=== PATIENT | female | born 1940 | race Caucasian/White ===

== ENCOUNTER → 2017-06-23 | Outpatient (CLI) | payer MEDICARE ==
[~2017-06-23] MED LIST: ATEN50TA PO; HCT25T PO; LVT.05T PO; MULT-608 PO; NFAMINITAB PO; vitamin d PO
== END ==
LOC: RAD 09:16
PROVIDERS: ATTEND Nurse Practitioner Family
DX: Z12.31 Encounter for screening mammogram for malignant neoplasm of breast (principal)
CPT/HCPCS: 77067

== ENCOUNTER → 2018-10-12 | Outpatient (CLI) | payer MEDICARE ==
--- NOTE | 2018-10-12 13:18 | Diagnostic Imaging Report ---
INDICATION: Routine screening. COMPARISON: 06/23/2017 and 06/09/2016. TECHNIQUE: 2D and 3D bilateral screening mammography was performed with CAD. FINDINGS: Scattered fibroglandular densities are identified bilaterally. Benign calcifications in the right breast are noted. The parenchymal pattern is stable. No dominant mass or malignant appearing microcalcifications are seen. The axillae are unremarkable. IMPRESSION: No mammographic features suspicious for malignancy are identified. ACR BI-RADS Category 2: Benign findings. Result letter will be mailed to the patient. Note: At least 10% of breast cancer is not imaged by mammography. Dictated by: Dictated on workstation # [id number]
== END ==
LOC: RAD 07:46
PROVIDERS: ATTEND Nurse Practitioner Family
DX: Z12.31 Encounter for screening mammogram for malignant neoplasm of breast (principal)
CPT/HCPCS: 77067

== ENCOUNTER → 2018-11-10 | Outpatient (CLI) | payer MEDICARE ==
--- NOTE | 2018-11-10 09:30 | Diagnostic Imaging Report ---
PROCEDURE: US Hepatic (Liver). TECHNIQUE: Multiple real-time grayscale images were obtained over the right upper quadrant in various projections. INDICATION: Elevated alkaline phosphatase. FINDINGS: The liver is normal in size at 14 cm. No discrete liver mass is identified. The gallbladder is without stones or sludge. No wall thickening or biliary duct dilatation is seen. The pancreas and right kidney are unremarkable. There is no ascites. IMPRESSION: No abnormality identified. Dictated by: Dictated on workstation # [id number]
--- NOTE | 2018-11-10 10:05 | Diagnostic Imaging Report ---
PROCEDURE: CT maxillofacial and sinuses without contrast. TECHNIQUE: Multiple contiguous axial images were obtained through the facial bones and sinuses without the use of intravenous contrast. INDICATION: Left jaw pain. COMPARISON: CT sinuses without contrast 10/02/2009. FINDINGS: Ivahkacq-ji-kfhhgqoz degenerative changes in the left temporomandibular joint. Mild degenerative changes in the right temporomandibular joint. The mandible is intact. No maxillofacial fractures. There are postoperative findings in the left maxillary antrostomy and ethmoidectomy. There is moderate mucosal thickening in the left maxillary sinus. Mild S-shaped bowing of the nasal septum. No large radha bullosa. No periapical lucencies about the maxillary or mandibular dentition. Skull base is intact. The mastoids and middle ears are clear. Moderate spondylotic changes at C4-C5 result in at least mild spinal canal narrowing. Cysk-ls-qjjzlegf atherosclerotic calcifications in the carotid bifurcations. Intracranial vascular calcifications. IMPRESSION: 1. 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 2. Left maxillary antrostomy and ethmoidectomy. There is moderate mucosal thickening in the left maxillary sinus. Paranasal sinuses are otherwise clear. Dictated by: Dictated on workstation # [id number]
--- NOTE | 2018-11-10 13:19 | Diagnostic Imaging Report ---
PROCEDURE: CT maxillofacial and sinuses without contrast. TECHNIQUE: Multiple contiguous axial images were obtained through the facial bones and sinuses without the use of intravenous contrast. INDICATION: Left jaw pain. COMPARISON: CT sinuses without contrast 10/02/2009. FINDINGS: Moderate to advanced degenerative changes in the left temporomandibular joint. Mild degenerative changes in the right temporomandibular joint. The mandible is intact. No maxillofacial fractures. There are postoperative findings in the left maxillary antrostomy and ethmoidectomy. There is moderate mucosal thickening in the left maxillary sinus. Mild S-shaped bowing of the nasal septum. No large radha bullosa. No periapical lucencies about the maxillary or mandibular dentition. Skull base is intact. The mastoids and middle ears are clear. Moderate spondylotic changes at C4-C5 result in at least mild spinal canal narrowing. Mild to moderate atherosclerotic calcifications in the carotid bifurcations. Intracranial vascular calcifications. IMPRESSION: 1. 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 2. Left maxillary antrostomy and ethmoidectomy. There is moderate mucosal thickening in the left maxillary sinus. Paranasal sinuses are otherwise clear. Dictated by: Dictated on workstation # [id number]
== END ==
LOC: RAD 08:25
PROVIDERS: ATTEND Family Medicine
DX: M26.69 Other specified disorders of temporomandibular joint (principal); J32.0 Chronic maxillary sinusitis; R74.8 Abnormal levels of other serum enzymes; R68.84 Jaw pain; Z98.890 Other specified postprocedural states
CPT/HCPCS: 70486; 76705

== ENCOUNTER → 2018-11-22 | Outpatient (CLI) | payer MEDICARE ==
[~2018-11-22] MED LIST changes: +BARIUM SUSPENSION 2.1% (VANILLA SILQ) 450 ML PO ONE; +CATHETER FLUSH 10 ML SYR IV PRN; +IOHEXOL 350 MG/ML 100 ML (OMNIPAQUE 350) VIAL IV ONE; +NS 100 ML (IVPB) BAG IV ONE; +RECEIVED CONTRAST 20 ML VIAL IV SCH
--- NOTE | 2018-11-22 14:39 | Diagnostic Imaging Report ---
PROCEDURE: CT abdomen and pelvis with and without contrast. TECHNIQUE: Precontrast acquisitions were acquired through the abdomen and pelvis. Multiple contiguous axial images were obtained through the abdomen and pelvis after the administration of intravenous contrast. INDICATION: Elevated alkaline phosphatase. COMPARISON: No prior studies are available for comparison. FINDINGS: The lung bases are clear. The liver contains multiple low-density solid-appearing masses throughout the right lobe suggestive of hepatic metastatic disease. Mixed density mass in the dome of the right lobe of the liver anteriorly measures approximately 6.7 x 4.6 cm. The gallbladder is unremarkable. No biliary ductal dilatation is seen. The pancreas and spleen are unremarkable. No adrenal mass is identified. Kidneys are unremarkable. Aorta is nonaneurysmal. There is some nonspecific low-density soft tissue density in the central retroperitoneum at the level of the celiac left para-aortic region measuring 2.7 x 1.3 cm. This may represent lymphadenopathy. There is also low-density lymphadenopathy in the region of the right paraesophageal location measuring 1.2 cm in diameter. Nonspecific soft tissue in the juanita hepatis is noted suggestive of lymphadenopathy. Mesenteric node measures approximately 1.5 cm just inferior to the aortic bifurcation into the right of midline. Bowel loops are normal caliber. No obstruction is seen. There is sigmoid diverticulosis but no evidence of acute diverticulitis. There is no ascites. No definite inguinal or iliac lymphadenopathy is detected. IMPRESSION: 1. Numerous low-density solid masses throughout the liver suggestive of hepatic metastatic disease. Possibility of a primary liver lesion such as cholangiocarcinoma with associated hepatic metastases would be additional consideration. No biliary ductal dilatation is identified. There are numerous low-density enlarged lymph nodes in the juanita hepatis, central retroperitoneum and right paraesophageal location as well suggestive of metastatic disease. Mildly enlarged mesenteric node is present as well. Results were discussed with Dr. Selma Nelson prior to this dictation. Dictated by: Dictated on workstation # [id number]
== END ==
LOC: RAD 13:27
PROVIDERS: ATTEND Family Medicine
DX: R59.0 Localized enlarged lymph nodes (principal); R16.0 Hepatomegaly, not elsewhere classified
CPT/HCPCS: 74178

== ENCOUNTER 2018-11-26 08:52 | Outpatient (CLI) | payer MEDICARE ==
[~2018-11-26] VITALS: Ht 157.5 cm; Wt 56.7 kg
[2018-11-26] VITALS (14 sets, daily range): BP systolic 112–164; BP diastolic 45–78
[~2018-11-26 08:52] MED LIST changes: -BARIUM SUSPENSION 2.1% (VANILLA SILQ) 450 ML PO ONE; -CATHETER FLUSH 10 ML SYR IV PRN; -IOHEXOL 350 MG/ML 100 ML (OMNIPAQUE 350) VIAL IV ONE; -NS 100 ML (IVPB) BAG IV ONE; -RECEIVED CONTRAST 20 ML VIAL IV SCH
[2018-11-26] MEDS ORDERED: NS IV 1000 ML 1,000 ML IV STA (08:55)
[2018-11-26] MEDS ORDERED: LIDOCAINE 1% INJ 20 ML 20 ML VIAL INJ ONE (09:00)
[2018-11-26] MEDS ORDERED: MIDAZOLAM 2 MG/2 ML (VERSED) VIAL IVP ONE (09:00)
[2018-11-26] MEDS ORDERED: fentaNYL INJECTION 100 MCG/2 ML AMP IVP ONE (09:00)
--- NOTE | 2018-11-26 09:30 | NUR ---
ADMITTED TO ROOM 417 FOR LIVER BIOPSY, ALERT AND ORIENTED, VERBALIZED UNDERSTANDING OF PROCEDURE.
--- NOTE | 2018-11-26 09:40 | NUR ---
CONSENT SIGNED FOR LIVER BIOPSY
[2018-11-26] MEDS ORDERED: ALBUMIN 25% 25 GM/100 ML 100 ML IV ONE (10:00)
[2018-11-26 10:04] LABS: BASOPHILS # (AUTO) 0.1 10^3/uL (0.0-0.1); BASOPHILS % (AUTO) 1 % (0-10); EOSINOPHILS # (AUTO) 0.3 10^3/uL (0.0-0.3); EOSINOPHILS % (AUTO) 5 % (0-10); HEMATOCRIT 41 % (35-52); HEMOGLOBIN 13.5 G/DL (11.5-16.0); LYMPHOCYTES % (AUTO) 27 % (12-44); MEAN CORPUSCULAR HEMOGLOBIN 29 PG (25-34); MEAN CORPUSCULAR HGB CONC 33 G/DL (32-36); MEAN CORPUSCULAR VOLUME 89 FL (80-99); MEAN PLATELET VOLUME 10.7 FL (7.4-10.4); MONOCYTES # (AUTO) 0.8 X 10^3 (0.0-1.0); MONOCYTES % (AUTO) 10 % (0-12); NEUTROPHILS # (AUTO) 4.4 X 10^3 (1.8-7.8); NEUTROPHILS % (AUTO) 58 % (42-75); PLATELET COUNT 364 10^3/uL (130-400); RED CELL DISTRIBUTION WIDTH 13.8 % (10.0-14.5); WHITE BLOOD COUNT 7.6 10^3/uL (4.3-11.0)
[2018-11-26] MEDS ORDERED: FLU QUADRIvalent (5+ YOA) 2018-2019 (AFLURIA) 0.5 ML IM ONE (10:15)
[2018-11-26 10:22] LABS: INR 0.9 (0.8-1.4); PROTHROMBIN TIME PATIENT 12.4 SEC (12.2-14.7)
[2018-11-26 10:27] LABS: ALBUMIN 4.5 GM/DL (3.2-4.5); CALCIUM 10.4 MG/DL (8.5-10.1); CREATININE SERUM 1.08 MG/DL (0.60-1.30); POTASSIUM 4.1 MMOL/L (3.6-5.0)
--- NOTE | 2018-11-26 11:06 | NUR ---
to radiology per bed
[2018-11-26] MEDS ORDERED: HYDROcodone/APAP 5 MG/325 MG (LORTAB) TAB PO PRN (12:15)
--- NOTE | 2018-11-26 12:32 | Pre-Op Note & Conscious Sedat ---
Pre-Operative Progress Note H&P Reviewed The H&P was reviewed, patient examined and no changes noted. Date H&P Reviewed: Nov 26, 2018 Time H&P Reviewed: 10:00 Pre-Op Diagnosis: Liver mass Conscious Sedation Pre-Proced Time 10:00 ASA Score 2 For ASA 3 and 4: Consider anesthesia and medical clearance. Also, for patients with a history of failed moderate sedation consider anesthesia. Airway Lungs Heart ASA score ASA 1: a normal healthy patient ASA 2: a patient with a mild systemic disease (mid diabetes, controlled hypertension, obesity ASA 3: a patient with a severe systemic disease that limits activity (angina , COPD, prior Myocardial infarction) ASA 4: a patient with an incapacitating disease that is a constant threat to life (CHF, renal failure) ASA 5: a moribund patient not expected to survive 24 hrs. (ruptured aneurysm) ASA 6: a declared brain- patient whose organs are being harvested. For emergent operations, add the letter E after the classification Mallampati Classification Grade 2 Sedation Plan Analgesia, Amnesia, Plan communicated to team members, Discussed options with patient/fam, Discussed risks with patient/fam The patient is an appropriate candidate to undergo the planned procedure, sedation, and anesthesia. The patient immediately re-assessed prior to indication. FIFI ZHONG MD Nov 26, 2018 12:32
--- NOTE | 2018-11-26 12:40 | NUR ---
RETURNED FROM LIVER BIOPSY
--- NOTE | 2018-11-26 13:10 | Diagnostic Imaging Report ---
INDICATION: Liver masses. Patient presents for biopsy using CT guidance. TECHNIQUE: The patient was brought to the CT suite and placed on the table in the supine position. Axial imaging through the abdomen was performed to evaluate for an appropriate entry site. The procedure was performed utilizing conscious sedation with Radiology nursing and constant patient monitoring. The patient was administered a total of 0.5 mg of Versed and 50 mcg of Fentanyl intravenously. The total procedure time was 12 minutes. The right abdomen was prepped and draped in the usual sterile fashion. A small amount of 1% lidocaine was utilized for local anesthesia. An 18-gauge coaxial Temno needle was advanced and placed with its tip along the margin of the low-density mass in the inferior right lobe of the liver. A total of five core biopsies was obtained. A blood patch was injected during needle removal. Hemostasis was obtained using manual compression. The patient tolerated the procedure well. IMPRESSION: CT-guided right lobe liver biopsy utilizing conscious sedation. Pathology results are currently pending. Dictated by: Dictated on workstation # [id number]
--- NOTE | 2018-11-26 13:18 | Diagnostic Imaging Report ---
PROCEDURE: CT chest without contrast. TECHNIQUE: Multiple contiguous axial images were obtained through the chest without the use of intravenous contrast. INDICATION: Liver masses. No prior studies available for comparison. No axillary lymphadenopathy is seen. Hilar and mediastinal valuation is limited without intravenous contrast. There is some questionable soft tissue fullness in the subcarinal region, raising question of adenopathy. This area measures approximately 2.3 x 1.5 cm. The david is unremarkable. No pericardial or pleural fluid is identified. Pulmonary parenchyma appears clear. No nodule, mass or infiltrate is detected. Imaging to upper abdomen again demonstrates multiple low-density masses throughout the liver suggestive of hepatic metastatic disease. IMPRESSION: There is some mild soft tissue fullness in the subcarinal region, raising question of subcarinal lymphadenopathy. Study is limited without IV contrast. No pulmonary parenchymal metastatic disease is identified. Dictated by: Dictated on workstation # [id number]
--- NOTE | 2018-11-26 16:37 | NUR ---
DISMISSED PER W/C, ACCOMPANIED BY FAMILY, DENIES PAIN, DRESSING DRY AND INTACT, VITAL SIGNS STABLE
== END 2018-11-26 16:37 ==
LOC: RAD 08:52 → 4TH 09:45 → RAD 16:37 → 4TH 11-27 10:24 → RAD 11-27 10:24
PROVIDERS: ATTEND Family Medicine
DX: C22.7 Other specified carcinomas of liver (principal)
CPT/HCPCS: 36415; 71250; 77012; 80053; 82105; 82378; 83615; 85025; 85610; 85730; 86301; 99156

== ENCOUNTER 2018-12-08 05:37 | Outpatient (CLI) | payer MEDICARE ==
[~2018-12-08] VITALS: Ht 157.5 cm; Wt 56.7 kg
[2018-12-08] MEDS ORDERED: INDA1.25 PO (10:44)
[2018-12-08] MEDS ORDERED: LEVO50TA6 PO (10:44)
[2018-12-08] MEDS ORDERED: ATEN50TA PO (10:44)
[2018-12-08] MEDS ORDERED: MULT-178 PO (10:44)
[2018-12-08] MEDS ORDERED: VIT1CAPS5 PO (10:44)
[2018-12-08] MEDS ORDERED: LISI10TA2 PO (10:44)
== END 2018-12-08 10:48 | disposition home or self-care (01) ==
LOC: PREOP 05:37
PROVIDERS: ATTEND Internal Medicine
DX: Z01.818 Encounter for other preprocedural examination (principal)

== ENCOUNTER 2018-12-10 08:13 | Day surgery (SDC) | payer MEDICARE ==
--- NOTE | 2018-12-09 10:33 | HISTORY AND PHYSICAL ---
DATE OF SERVICE: COLONOSCOPY HISTORY AND PHYSICAL DATE OF ADMISSION: 12/10/2018. HISTORY OF PRESENT ILLNESS: The patient is a 76-year-old white female referred by Dr. Mancini for panendoscopy for evaluation of metastatic liver disease. The patient reports she had undergone biopsy and they know it is cancer, so I presume likely adenocarcinoma of unknown primary. She reports that she has been feeling increasingly fatigued over the past several months and was noted to have elevated liver function studies. This ultimately led to a CT scan compatible with metastatic disease. She states that there may have been some lymph nodes around the aorta. She has had some epigastric and band like right upper quadrant abdominal pain. Denies any bowel habit change and has not been aware of any bright red blood per rectum or melena. She denies dysphagia or odynophagia. PAST MEDICAL HISTORY: I had performed colonoscopy on her in December of 2011. It has revealed a small fissure at the 12 o'clock position, but no evidence for neoplasia. She has past history of hypothyroidism and hypertension with no known history of coronary artery disease or cerebrovascular disease. PAST SURGICAL HISTORY: Significant for a distant history of sinus surgery. She denies any abdominal surgeries. MEDICATIONS ON ADMISSION: Include L-thyroxine 50 mcg daily, lisinopril 10 mg daily, indapamide 1.25 mg daily, atenolol 50 mg daily and PreserVision multivitamin daily. FAMILY HISTORY: She is not aware of any family history for any form of cancer including GI tract malignancy. 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 REVIEW OF SYSTEMS: CONSTITUTIONAL: Pertinent for fatigue. She denied night sweats, chills or fever. CARDIOVASCULAR: She denies chest pain, orthopnea, PND or pedal edema. PULMONARY: She has had no cough or wheezing. GASTROINTESTINAL: As noted in the HPI. PHYSICAL EXAMINATION: GENERAL: Reveals somewhat sallow complected white female, who did not appear to be in acute distress. VITAL SIGNS: Her weight was 126 pounds, which is down 15 pounds from her 2012 office weight, blood pressure 110/70 and heart rate 70 and regular. HEENT: Unremarkable. Sclerae did not appear to be icteric. CHEST: Clear to auscultation. CARDIOVASCULAR: Reveals a regular rate and rhythm without murmur, S3 or S4. ABDOMEN: Soft and supple. The right hepatic lobe appears to be about 2 cm below the right costal margin, slightly tender. I could not appreciate any definitive nodularity. Spleen was not palpable. Abdomen revealed no masses to palpation and there was no lower quadrant tenderness to palpation. EXTREMITIES: Revealed no cyanosis or clubbing. The patient does have trace pedal edema. 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 The patient is set up for panendoscopy on 12/10/2018. Prep instructions were given and questions were answered. Job ID: [id number] DocumentID: [id number] Dictated Date: 12/07/2018 11:59:05 Make Up Artist Date: 12/07/2018 12:19:13 Dictated By: ANGIE NOYOLA MD MTDD
[~2018-12-10] VITALS: Ht 157.5 cm; Wt 56.7 kg
[~2018-12-10 08:13] MED LIST changes: +INDA1.25 PO; +LEVO50TA6 PO; +LISI10TA2 PO; +MULT-178 PO; +VIT1CAPS5 PO
--- OUTSIDE RECORDS SUMMARY | 2018-12-10 08:16 | XMS REPORT | Continuity of Care Document ---
Author Author [facility] Organization [facility] Address Unknown Phone Unavailable Allergies Active Description Code Type Severity Reaction Onset Reported/Identified Relationship to Patient Clinical Status Yes No Known Drug Allergies [id number] Drug Allergy Unknown N/A 12/08/2018 Medications There is no data. 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 NOS 09/17/2014 CHAPARRO MOSHER, SHERRY Beard Ot 379.91 PAIN IN OR AROUND EYE 09/17/2014 Ot V76.12 09/17/2014 Ot 473.9 09/17/2014 Ot 780.60 09/17/2014 Ot 786.50 09/17/2014 Ot 786.50 09/17/2014 Ot V76.12 09/17/2014 Ot 722.52 09/17/2014 Ot V72.84 09/17/2014 Ot V76.12 09/17/2014 MARY MOSHER, SAQIB Corea Ot V76.12 09/17/2014 MARY MOSHER, SAQIB Corea Ot V76.12 05/30/2015 SHAHID MOSHER, GÉNESIS Mckay Ot 715.31 06/05/2015 Ot V76.12 06/05/2015 Ot 722.52 06/05/2015 Ot V72.84 06/05/2015 Ot V76.12 06/05/2015 SAQIB HERNANDEZ MD Ot V76.12 06/05/2015 SAQIB HERNANDEZ MD Ot V76.12 06/05/2015 SHAHID MOSHER, GÉNESIS Mckay Ot 715.31 06/05/2015 SHAHID MOSHER, GÉNESIS Mckay Ot 715.31 06/07/2015 SHAHID MOSHER, GÉNESIS Mckay Ot 715.31 06/27/2015 SHAHID MOSHER, GÉNESIS Mckay Ot V76.12 06/09/2016 KYLE, ESTUARDO M DECORATING INSPECTOR Ot Z12.31 ENCNTR SCREEN MAMMOGRAM FOR MALIGNANT NE 06/10/2016 ESTUARDO WRIGHT DECORATING INSPECTOR Ot Z12.31 ENCNTR SCREEN MAMMOGRAM FOR MALIGNANT NE 06/19/2016 ESTUARDO WRIGHT DECORATING INSPECTOR Ot Z12.31 ENCNTR SCREEN MAMMOGRAM FOR MALIGNANT NE 06/17/2017 ESTUARDO WRIGHT DECORATING INSPECTOR Ot Z12.31 ENCNTR SCREEN MAMMOGRAM FOR MALIGNANT NE 06/23/2017 Ot V76.12 OTH SCREEN MAMMO-MALIGN NEOPLASM OF ALBA 06/23/2017 MARY MOSHER, SAQIB Corea Ot V76.12 OTH SCREEN MAMMO-MALIGN NEOPLASM OF ALBA 06/23/2017 MARY MOSHER, SAQIB Corea Ot V76.12 OTH SCREEN MAMMO-MALIGN NEOPLASM OF ALBA 06/23/2017 SHAHID MOSHER, GÉNESIS Mckay Ot V76.12 OTH SCREEN MAMMO-MALIGN NEOPLASM OF ALBA 06/23/2017 SHAHID MOSHER, GÉNESIS A Ot 715.31 LOC OSTEOARTH NOS-SHLDER 06/23/2017 ESTUARDO WRIGHT DECORATING INSPECTOR Ot Z12.31 ENCNTR SCREEN MAMMOGRAM FOR MALIGNANT NE 06/23/2017 ESTUARDO WRIGHT DECORATING INSPECTOR Ot Z12.31 ENCNTR SCREEN MAMMOGRAM FOR MALIGNANT NE 07/16/2017 ESTUARDO WRIGHT DECORATING INSPECTOR Ot Z12.31 ENCNTR SCREEN MAMMOGRAM FOR MALIGNANT NE 10/11/2018 ESTUARDO WRIGHT DECORATING INSPECTOR Ot Z12.31 ENCNTR SCREEN MAMMOGRAM FOR MALIGNANT NE 10/12/2018 MARY MOSHER, SAQIB Corea Ot V76.12 OTH SCREEN MAMMO-MALIGN NEOPLASM OF ALBA 10/12/2018 SHAHID MOSHER, GÉNESIS A Ot V76.12 OTH SCREEN MAMMO-MALIGN NEOPLASM OF ALBA 10/12/2018 SHAHID MOSHER, GÉNESIS A Ot 715.31 LOC OSTEOARTH NOS-SHLDER 10/12/2018 ESTUARDO WRIGHT DECORATING INSPECTOR Ot Z12.31 ENCNTR SCREEN MAMMOGRAM FOR MALIGNANT NE 10/12/2018 ESTUARDO RWIGHT DECORATING INSPECTOR Ot Z12.31 ENCNTR SCREEN MAMMOGRAM FOR MALIGNANT NE 10/12/2018 ESTUARDO WRIGHT DECORATING INSPECTOR Ot Z12.31 ENCNTR SCREEN MAMMOGRAM FOR MALIGNANT NE 10/13/2018 ESTUARDO WRIGHT DECORATING INSPECTOR Ot Z12.31 ENCNTR SCREEN MAMMOGRAM FOR MALIGNANT NE 11/03/2018 ESTUARDO WRIGHT DECORATING INSPECTOR Ot Z12.31 ENCNTR SCREEN MAMMOGRAM FOR MALIGNANT NE 11/10/2018 GÉNESIS KEY MD Ot J32.0 CHRONIC MAXILLARY SINUSITIS 11/10/2018 GÉNESIS KEY MD Ot M26.69 OTHER SPECIFIED DISORDERS OF TEMPOROMAND 11/10/2018 GÉNESIS KEY MD Ot R68.84 JAW PAIN 11/10/2018 GÉNESIS KYE MD Ot R74.8 ABNORMAL LEVELS OF OTHER SERUM ENZYMES 11/10/2018 GÉNESIS KEY MD Ot Z98.890 OTHER SPECIFIED POSTPROCEDURAL STATES 11/23/2018 GÉNESIS KEY MD Ot R16.0 HEPATOMEGALY, NOT ELSEWHERE CLASSIFIED 11/23/2018 GÉNESIS KEY MD Ot R59.0 LOCALIZED ENLARGED LYMPH NODES 11/23/2018 GÉNESIS KEY MD Ot V76.12 OTH SCREEN MAMMO-MALIGN NEOPLASM OF ALBA 11/23/2018 GÉNESIS KEY MD Ot 715.31 LOC OSTEOARTH NOS-SHLDER 11/23/2018 ESTUARDO WRIGHT DECORATING INSPECTOR Ot Z12.31 ENCNTR SCREEN MAMMOGRAM FOR MALIGNANT NE 11/23/2018 ESTUARDO WRIGHT DECORATING INSPECTOR Ot Z12.31 ENCNTR SCREEN MAMMOGRAM FOR MALIGNANT NE 11/23/2018 ESTUARDO WRIGHT DECORATING INSPECTOR Ot Z12.31 ENCNTR SCREEN MAMMOGRAM FOR MALIGNANT NE 11/23/2018 GÉNESIS KEY MD Ot J32.0 CHRONIC MAXILLARY SINUSITIS 11/23/2018 GÉNESIS KEY MD Ot M26.69 OTHER SPECIFIED DISORDERS OF TEMPOROMAND 11/23/2018 GÉNESIS KEY MD Ot R68.84 JAW PAIN 11/23/2018 GÉNESIS KEY MD Ot R74.8 ABNORMAL LEVELS OF OTHER SERUM ENZYMES 11/23/2018 GÉNESIS KEY MD Ot Z98.890 OTHER SPECIFIED POSTPROCEDURAL STATES 11/23/2018 GÉNESIS KEY MD Ot R16.0 HEPATOMEGALY, NOT ELSEWHERE CLASSIFIED 11/23/2018 GÉNESIS KEY MD Ot R59.0 LOCALIZED ENLARGED LYMPH NODES 11/26/2018 GÉNESIS KEY MD Ot K76.9 LIVER DISEASE, UNSPECIFIED 11/26/2018 SHAHID MOSHER, GÉNESIS Woody Ot K76.9 LIVER DISEASE, UNSPECIFIED 12/08/2018 DENNYS MOSHER, ANGIE Beard Ot Z01.818 ENCOUNTER FOR OTHER PREPROCEDURAL EXAMIN Procedures There is no data. Results Test Result Range Complete blood count (CBC) with automated white blood cell (WBC) differential - 11/26/18 09:55 Blood leukocytes automated count (number/volume) 7.6 10*3/uL 4.3-11.0 Blood erythrocytes automated count (number/volume) 4.64 10*6/uL 4.35-5.85 Venous blood hemoglobin measurement (mass/volume) 13.5 g/dL 11.5-16.0 Blood hematocrit (volume fraction) 41 % 35-52 Automated erythrocyte mean corpuscular volume 89 [foz_us] 80-99 Automated erythrocyte mean corpuscular hemoglobin (mass per erythrocyte) 29 pg 25-34 Automated erythrocyte mean corpuscular hemoglobin concentration measurement ( mass/volume) 33 g/dL 32-36 Automated erythrocyte distribution width ratio 13.8 % 10.0-14.5 Automated blood platelet count (count/volume) 364 10*3/uL 130-400 Automated blood platelet mean volume measurement 10.7 [foz_us] 7.4-10.4 Automated blood neutrophils/100 leukocytes 58 % 42-75 Automated blood lymphocytes/100 leukocytes 27 % 12-44 Blood monocytes/100 leukocytes 10 % 0-12 Automated blood eosinophils/100 leukocytes 5 % 0-10 Automated blood basophils/100 leukocytes 1 % 0-10 Blood neutrophils automated count (number/volume) 4.4 10*3 1.8-7.8 Blood lymphocytes automated count (number/volume) 2.0 10*3 1.0-4.0 Blood monocytes automated count (number/volume) 0.8 10*3 0.0-1.0 Automated eosinophil count 0.3 10*3/uL 0.0-0.3 Automated blood basophil count (count/volume) 0.1 10*3/uL 0.0-0.1 PT panel in platelet poor plasma by coagulation assay - 11/26/18 09:55 Prothrombin time (PT) in platelet poor plasma by coagulation assay 12.4 s 12.2-14.7 INR in platelet poor plasma or blood by coagulation assay 0.9 0.8-1.4 Activated partial thromboplastin time (aPTT) in platelet poor plasma bycoagulation assay - 11/26/18 09:55 Activated partial thromboplastin time (aPTT) in platelet poor plasma bycoagulation assay 36 s 24-35 Comprehensive metabolic panel - 11/26/18 09:55 Serum or plasma sodium measurement (moles/volume) 134 mmol/L 135-145 Serum or plasma potassium measurement (moles/volume) 4.1 mmol/L 3.6-5.0 Serum or plasma chloride measurement (moles/volume) 99 mmol/L 98-107 Carbon dioxide 23 mmol/L 21-32 Serum or plasma anion gap determination (moles/volume) 12 mmol/L 5-14 Serum or plasma urea nitrogen measurement (mass/volume) 16 mg/dL 7-18 Serum or plasma creatinine measurement (mass/volume) 1.08 mg/dL 0.60-1.30 Serum or plasma urea nitrogen/creatinine mass ratio 15 NRG Serum or plasma creatinine measurement with calculation of estimated glomerular filtration rate 49 NRG Serum or plasma glucose measurement (mass/volume) 111 mg/dL 70-105 Serum or plasma calcium measurement (mass/volume) 10.4 mg/dL 8.5-10.1 Serum or plasma total bilirubin measurement (mass/volume) 1.0 mg/dL 0.1-1.0 Serum or plasma alkaline phosphatase measurement (enzymatic activity/volume) 363 U/L 40-136 Serum or plasma aspartate aminotransferase measurement (enzymatic activity/ volume) 43 U/L 5-34 Serum or plasma alanine aminotransferase measurement (enzymatic activity/volume ) 27 U/L 0-55 Serum or plasma protein measurement (mass/volume) 8.0 g/dL 6.4-8.2 Serum or plasma albumin measurement (mass/volume) 4.5 g/dL 3.2-4.5 CALCIUM CORRECTED 10.0 mg/dL 8.5-10.1 Lactate dehydrogenase 1 [enzymatic activity/volume] in serum or plasma - 09:55 Lactate dehydrogenase 1 [enzymatic activity/volume] in serum or plasma 399 U/L 125-220 Serum or plasma mpwgl-6-gglfsmksugi.tumor marker measurement (mass/volume) - 09:55 Serum or plasma [id number]-[id number].tumor marker measurement (mass/volume) 4.4 % 0.0-8.8 Serum ragweed IgE antibody assay - 11/26/18 09:55 [id number] 46.6 % 0.0-5.0 CA 19-9 - 11/26/18 09:55 CA 19-9 C 422 u[iU]/mL 0-37 Encounters ACCT No. Visit Date/Time Discharge Status Pt. Type Provider Facility Loc./Unit Complaint [id number] 12/08/2018 05:37:00 12/08/2018 10:48:00 DIS Outpatient ANGIE NOYOLA MD [facility] PREOP COLONOSCOPY,EGD [id number] 12/02/2018 13:51:00 12/02/2018 23:59:59 CLS Outpatient LISE MINER MD [facility] ONC [id number] 11/26/2018 08:52:00 11/26/2018 16:37:00 DIS Outpatient GÉNESIS KEY MD [facility] RAD LIVER TUMORS ON CT SCAN [id number] 11/24/2018 08:13:00 11/24/2018 23:59:59 CLS Preadmit GÉNESIS KEY MD [facility] RAD LIVER TUMORS ON CT SCAN [id number] 11/22/2018 13:27:00 11/22/2018 23:59:59 CLS Outpatient GÉNESIS KEY MD [facility] RAD ELEVATED ALKALINE PHOSPHATASE [id number] 11/10/2018 08:25:00 11/10/2018 23:59:59 CLS Outpatient GÉNESIS KEY MD [facility] RAD ELEVATED ALK PHOS, L JAW PAIN [id number] 10/12/2018 07:46:00 10/12/2018 23:59:59 CLS Outpatient ESTUARDO WRIGHT APRN [facility] RAD SCREENING [id number] 05/11/2018 10:40:00 05/11/2018 23:59:59 CLS Preadmit GÉNESIS KEY MD [facility] RAD SCREENING MAMMOGRAM [id number] 06/23/2017 09:16:00 06/23/2017 23:59:59 CLS Outpatient ESTUARDO WRIGHT APRN [facility] RAD SCREENING [id number] 06/09/2016 09:47:00 06/09/2016 23:59:59 CLS Outpatient ESTUARDO WRIGHT APRN [facility] RAD SCREENING [id number] 06/05/2015 08:56:00 06/05/2015 23:59:59 CLS Outpatient GÉNESIS KEY MD [facility] RAD SCREENING [id number] 05/10/2015 10:48:00 05/10/2015 23:59:59 CLS Outpatient GÉNESIS KEY MD [facility] RAD R CLAVICLE ENLARGEMENT [id number] 09/17/2014 07:35:00 09/17/2014 09:17:00 DIS Emergency SHERRY MAYFIELD MD [facility] ER FACIAL PAIN [id number] 06/01/2014 08:31:00 06/01/2014 23:59:59 CLS Outpatient SAQIB HERNANDEZ MD [facility] RAD SCREENING [id number] 02/28/2013 09:51:00 02/28/2013 23:59:59 CLS Outpatient SAQIB HERNANDEZ MD [facility] RAD SCREENING [id number] 12/10/2018 08:13:00 ACT Outpatient ANGIE NOYOLA MD [facility] ENDO LIVER CANCER UNKNOWN ORIGIN [id number] 09/17/2014 09:22:00 Document Registration [id number] 02/02/2012 09:03:00 Document Registration [id number] 12/23/2011 06:10:00 Document Registration [id number] 12/19/2011 08:04:00 Document Registration [id number] 12/16/2011 09:28:00 Document Registration [id number] 01/30/2011 08:26:00 Document Registration [id number] 11/02/2009 07:08:00 Document Registration [id number] 10/02/2009 15:03:00 Document Registration [id number] 08/06/2009 09:29:00 Document Registration
[2018-12-10] MEDS ORDERED: D5 LR IV SOLUTION 1,000 ML IV STA (08:24)
[2018-12-10] MEDS ORDERED: fentaNYL INJECTION 100 MCG/2 ML AMP IVP ONE (08:30)
[2018-12-10] MEDS ORDERED: MIDAZOLAM 2 MG/2 ML (VERSED) VIAL IVP ONE (08:30)
[2018-12-10] MEDS ORDERED: HURRICAINE EXT TUBE (BENZOCAINE) XX PRN (08:30)
[2018-12-10] MEDS ORDERED: D5 LR IV SOLUTION 1,000 ML IV ONE (08:31)
[2018-12-10] MEDS ORDERED: MIDAZOLAM 2 MG/2 ML (VERSED) VIAL ONE ×3 (08:51→09:18)
[2018-12-10] MEDS ORDERED: fentaNYL INJECTION 100 MCG/2 ML AMP ONE (08:51)
[2018-12-10] MEDS ORDERED: LIDOCAINE JELLY 2% 6 ML SYRINGE ONE (08:52)
[2018-12-10] MEDS ORDERED: HURRICAINE EXT TUBE (BENZOCAINE) ONE (08:52)
[2018-12-10 08:56] VITALS: BP 141/74
--- NOTE | 2018-12-10 09:14 | Pre-Op Note & Conscious Sedat ---
Pre-Operative Progress Note H&P Reviewed The H&P was reviewed, patient examined and no changes noted. Date H&P Reviewed: Dec 10, 2018 Time H&P Reviewed: 08:35 Conscious Sedation Pre-Proced ASA Score 2 For ASA 3 and 4: Consider anesthesia and medical clearance. Also, for patients with a history of failed moderate sedation consider anesthesia. Airway Lungs Heart ASA score ASA 1: a normal healthy patient ASA 2: a patient with a mild systemic disease (mid diabetes, controlled hypertension, obesity ASA 3: a patient with a severe systemic disease that limits activity (angina , COPD, prior Myocardial infarction) ASA 4: a patient with an incapacitating disease that is a constant threat to life (CHF, renal failure) ASA 5: a moribund patient not expected to survive 24 hrs. (ruptured aneurysm) ASA 6: a declared brain- patient whose organs are being harvested. For emergent operations, add the letter E after the classification Mallampati Classification Grade 2 Sedation Plan Analgesia, Amnesia, Plan communicated to team members, Discussed options with patient/fam, Discussed risks with patient/fam The patient is an appropriate candidate to undergo the planned procedure, sedation, and anesthesia. The patient immediately re-assessed prior to indication. ANGIE NOYOLA MD Dec 10, 2018 09:14
[2018-12-10 10:15] VITALS: BP 145/70
[2018-12-10 11:10] VITALS: BP 130/90
[2018-12-10 11:24] VITALS: BP 130/90
--- NOTE | 2018-12-10 17:10 | OPERATIVE REPORT ---
DATE OF SERVICE: 12/10/2018 PANENDOSCOPY SUMMARY INDICATION FOR THE PROCEDURE: Metastatic adenocarcinoma of the liver, evaluating for primary site. The patient was placed in the left lateral decubitus position. Prior to doing a colonoscopy, digital rectal evaluation was performed. Anal sphincter tone was normal and the perianal reflexes were intact. No abnormalities were noted on visual inspection of the anal canal or distal rectal vault. The colonoscope was then inserted into the rectum and under direct visualization advanced to the cecum. The cecum was identified by identification of the ileocecal valve, cecal strap and appendiceal orifice. Photographic documentation was obtained. A careful inspection was made as the colonoscope was withdrawn. FINDINGS: There was no evidence for internal or external hemorrhoids and the rectum was unremarkable. Multiple small to medium size diverticulum were noted throughout the sigmoid colon without evidence for diverticulitis. No evidence for sigmoid colonic neoplasia was identified. The descending colon and transverse colon were unremarkable. Present in the hepatic flexure was a 6 mm adenomatous appearing polyp with benign appearance on gross inspection. Biopsies were obtained. There was no firmness noted and submitted for histopathology. No significant blood loss observed. The ascending colon was unremarkable. Spilling out of the appendiceal orifice was an adenomatous appearing polyp tissue. There was a little bit of firmness and multiple biopsies were obtained and submitted for histopathology. ASSESSMENT: An adenomatous appearing polyp was noted spilling out from the appendiceal orifice for which multiple biopsies were obtained and submitted for histopathology. 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 The patient also had another adenomatous polyp with benign features for which, multiple biopsies were obtained from the hepatic flexure. Moderate diverticular disease confined to the sigmoid colon was present without evidence for diverticulitis. No other abnormalities noted on today's procedure. We then proceeded with EGD evaluation. The endoscope was inserted into the oral cavity and under direct visualization, the esophagus was intubated. The endoscope was passed down the esophagus, stomach and second portion of duodenum. A careful inspection was made as the endoscope was withdrawn. The patient tolerated the procedure well. FINDINGS: The proximal and mid esophagus were unremarkable. A small to moderate size hiatal hernia was present with evidence for sphincter laxity. There was some erythema noted at the Z-line, but no evidence on gross inspection for esophageal carcinoma was present. No ulcerations were noted. The cardia, fundus, antrum, pylorus, pyloric channel, duodenal bulb and second portion of the duodenum including ampulla of Vater were unremarkable in appearance. ASSESSMENT: No evidence for potential malignancy was noted on today's EGD. The patient does have a small to moderate size hiatal hernia with evidence for lower esophageal sphincter laxity, but no evidence for erosive esophagitis. 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 I thank you for the referral of this pleasant lady. Job ID: [id number] DocumentID: [id number] Dictated Date: 12/10/2018 10:19:45 Rubber Vulcanizing Machine Operator Date: 12/10/2018 17:09:37 Dictated By: ANGIE NOYOLA MD MTDD
== END 2018-12-10 11:25 | disposition home or self-care (01) ==
LOC: ENDO 08:13
PROVIDERS: ATTEND Internal Medicine
DX: D12.1 Benign neoplasm of appendix (principal); D12.3 Benign neoplasm of transverse colon; K57.30 Diverticulosis of large intestine without perforation or abscess without bleeding; K44.9 Diaphragmatic hernia without obstruction or gangrene; C78.7 Secondary malignant neoplasm of liver and intrahepatic bile duct; I10 Essential (primary) hypertension; E03.9 Hypothyroidism, unspecified; Z79.899 Other long term (current) drug therapy

== ENCOUNTER → 2018-12-21 | Outpatient (CLI) | payer MEDICARE ==
[~2018-12-21] MED LIST changes: +HOLD METFORMIN - RECEIVED CONTRAST 20 ML VIAL IV SCH; +IOHEXOL 350 MG/ML 100 ML (OMNIPAQUE 350) VIAL IV ONE
--- NOTE | 2018-12-21 12:46 | Diagnostic Imaging Report ---
PROCEDURE: CT abdomen with contrast only. TECHNIQUE: Multiple contiguous axial images were obtained through the abdomen after the administration of intravenous contrast. Auto Exposure Controls were utilized during the CT exam to meet ALARA standards for radiation dose reduction. INDICATION: Hepatic masses. CORRELATION STUDY: CT abdomen of 11/22/2018. FINDINGS: Lung bases are clear. Heart size is normal. No significant pleural or pericardial effusion. Lower-density mass adjacent to the low esophagus currently measuring 14 x 13 mm, previously measured at 12 mm. Multiple low-density masses within both lobes of the liver are again demonstrated, disproportionate greater involving the right lobe, overall appear generally increased in their size. Marker lesions as follows: Mixed-density mass in the anterolateral aspect of the liver approximately 5.7 x 4.5 cm, previously measured 6.7 x 4.6 cm. Lateral right lobe 3.1 x 2.9 cm, previously 3.3 x 2.7 cm. Posteromedial right lobe currently 4.1 x 3.5 cm, previously 3.9 x 3.4 cm. Posterolateral right lobe 4.0 x 3.6 cm, previously 3.2 x 3.1 cm. Spleen, pancreas, adrenal glands are unremarkable. Kidneys with normal enhancement. No hydronephrosis or obstruction. Dense aortic wall calcification. Nodular density in the left upper quadrant periaortic region currently measuring 21 x 15 mm, measured in similar fashion previously measured approximately 26 x 13 mm. Additional adjacent nodule in the posterior left renal vessels currently measuring 15 x 12 mm, previously 14 x 10 mm. Debby hepatic lymphadenopathy also appears to be present, generally stable. Partially visualized gastrointestinal tract without obstruction. Colonic diverticulosis. Probable mesenteric lymph node in the central aspect of the abdomen just to the right of midline currently measures 16 x 15 mm, previously 15 x 12 mm. Pelvis is not imaged on this study. IMPRESSION: 1. Multiple low-density hepatic masses are again demonstrated. Overall appearance suggests slight interval increase in size. 2. Suggested lymphadenopathy in the debby hepatic region, left periaortic region, and mesentery persisting, stable to perhaps slightly more prominent as well. Dictated by: Dictated on workstation # [id number]
== END ==
LOC: RAD 08:36
PROVIDERS: ATTEND Internal Medicine Hematology & Oncology
DX: R16.0 Hepatomegaly, not elsewhere classified (principal); R97.8 Other abnormal tumor markers
CPT/HCPCS: 74160

== ENCOUNTER → 2018-12-28 | Outpatient (CLI) | payer MEDICARE ==
[~2018-12-28] MED LIST changes: -HOLD METFORMIN - RECEIVED CONTRAST 20 ML VIAL IV SCH; -IOHEXOL 350 MG/ML 100 ML (OMNIPAQUE 350) VIAL IV ONE
--- NOTE | 2018-12-29 08:07 | Diagnostic Imaging Report ---
EXAMINATION: PET/CT INDICATION: Liver mass TECHNIQUE: PET/CT imaging was obtained from the base of the skull through the pelvis after the administration of 12.37 mCi of F-[address] imaging was utilized for localization and attenuation correction purposes. The low energy CT utilized for attenuation correction is not considered to be of high enough spatial resolution to allow in and of itself a separate anatomical analysis. There are no prior PET/CT examinations available for comparison. The CT abdomen/pelvis exam of 12/02/2018 did note multiple low density hepatic masses. These were felt to be related to metastatic disease. Reportedly, the patient underwent a CT-guided biopsy of these lesions on 11/26/2018. The results of the biopsy are not known to me. The CT chest exam of 11/26/2018 also suggested subcarinal adenopathy. On this study there are multiple areas of hypermetabolic activity throughout the liver. These correspond to low density lesion seen on CT exam. The maximum SUV of these lesions is 10.2 and consequently they should be considered neoplastic until proven otherwise. The subcarinal mass is also hypermetabolic with a maximum SUV of 7.5. In addition there is a smaller slightly hypermetabolic node in the right hilum. This has a maximum SUV of 5.9. There is a minute area of increased activity in the left hilum with a maximum SUV of 3.5. There is no other hypermetabolic activity to suggest the presence of malignancy. IMPRESSION: The multiple hepatic masses and the subcarinal adenopathy are hypermetabolic and should be considered neoplastic until proven otherwise. There are also small slightly hypermetabolic nodes in both david and these too are most likely neoplastic in nature. There is no other hypermetabolic activity to suggest the presence of neoplasm. Dictated by: Dictated on workstation # [id number]
== END ==
LOC: RAD 11:10
PROVIDERS: ATTEND Internal Medicine Hematology & Oncology
DX: R16.0 Hepatomegaly, not elsewhere classified (principal); R59.0 Localized enlarged lymph nodes

== ENCOUNTER 2019-01-12 08:03 | Day surgery (SDC) | payer MEDICARE ==
[~2019-01-12] VITALS: Ht 157.5 cm; Wt 56.7 kg
[2019-01-12] VITALS (8 sets, daily range): BP systolic 121–134; BP diastolic 57–79
--- OUTSIDE RECORDS SUMMARY | 2019-01-12 08:09 | XMS REPORT | Continuity of Care Document ---
Author Organization Unknown Address Unknown Allergies Active Description Code Type Severity Reaction Onset Reported/Identified Relationship to Patient Clinical Status Yes No Known Drug Allergies [id number] Drug Allergy Unknown N/A 12/08/2018 Medications There is no data. 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 NOS 09/17/2014 SHERRY MAYFIELD MD Ot 379.91 PAIN IN OR AROUND EYE 09/17/2014 Ot V76.12 09/17/2014 Ot 473.9 09/17/2014 Ot 780.60 09/17/2014 Ot 786.50 09/17/2014 Ot 786.50 09/17/2014 Ot V76.12 09/17/2014 Ot 722.52 09/17/2014 Ot V72.84 09/17/2014 Ot V76.12 09/17/2014 SAQIB HERNANDEZ MD Ot V76.12 09/17/2014 SAQIB HERNANDEZ MD Ot V76.12 05/30/2015 SHAHID MOSHER, GÉNESIS Mckay Ot 715.31 06/05/2015 Ot V76.12 06/05/2015 Ot 722.52 06/05/2015 Ot V72.84 06/05/2015 Ot V76.12 06/05/2015 SAQIB HERNANDEZ MD Ot V76.12 06/05/2015 SAQIB HERNANDEZ MD Ot V76.12 06/05/2015 SHAHID MOSHER, GÉNESIS Mckay Ot 715.31 06/05/2015 SHAHID MOSHER, GÉNESIS Mckay Ot 715.31 06/07/2015 SHAHID MOSHER, GÉNESIS Mckay Ot 715.31 06/27/2015 SHAHID MOSHER, GÉNESIS Mckay Ot V76.12 06/09/2016 ESTUARDO WRIGHT APRN Ot Z12.31 ENCNTR SCREEN MAMMOGRAM FOR MALIGNANT NE 06/10/2016 ESTUARDO WRIGHT COOLER OPERATOR Ot Z12.31 ENCNTR SCREEN MAMMOGRAM FOR MALIGNANT NE 06/19/2016 ESTUARDO WRIGHT COOLER OPERATOR Ot Z12.31 ENCNTR SCREEN MAMMOGRAM FOR MALIGNANT NE 06/17/2017 ESTUARDO WRIGHT COOLER OPERATOR Ot Z12.31 ENCNTR SCREEN MAMMOGRAM FOR MALIGNANT NE 06/23/2017 Ot V76.12 OTH SCREEN MAMMO-MALIGN NEOPLASM OF ALBA 06/23/2017 MARY MOSHER, SAQIB Corea Ot V76.12 OTH SCREEN MAMMO-MALIGN NEOPLASM OF ALBA 06/23/2017 MARY MOSHER, SAQIB Corea Ot V76.12 OTH SCREEN MAMMO-MALIGN NEOPLASM OF ALBA 06/23/2017 SHAHID MOSHER, GÉNESIS A Ot V76.12 OTH SCREEN MAMMO-MALIGN NEOPLASM OF ALBA 06/23/2017 SHAHID MOSHER, GÉNESIS A Ot 715.31 LOC OSTEOARTH NOS-SHLDER 06/23/2017 ESTUARDO WRIGHT COOLER OPERATOR Ot Z12.31 ENCNTR SCREEN MAMMOGRAM FOR MALIGNANT NE 06/23/2017 ESTUARDO WRIGHT COOLER OPERATOR Ot Z12.31 ENCNTR SCREEN MAMMOGRAM FOR MALIGNANT NE 07/16/2017 ESTUARDO WRIGHT COOLER OPERATOR Ot Z12.31 ENCNTR SCREEN MAMMOGRAM FOR MALIGNANT NE 10/11/2018 ESTUARDO WRIGHT COOLER OPERATOR Ot Z12.31 ENCNTR SCREEN MAMMOGRAM FOR MALIGNANT NE 10/12/2018 MARY MOSHER, SAQIB Corea Ot V76.12 OTH SCREEN MAMMO-MALIGN NEOPLASM OF ALBA 10/12/2018 SHAHID MOSHER, GÉNESIS A Ot V76.12 OTH SCREEN MAMMO-MALIGN NEOPLASM OF ALBA 10/12/2018 SHAHID MOSHER, GÉNESIS A Ot 715.31 LOC OSTEOARTH NOS-SHLDER 10/12/2018 ESTUARDO WRIGHT COOLER OPERATOR Ot Z12.31 ENCNTR SCREEN MAMMOGRAM FOR MALIGNANT NE 10/12/2018 ESTUARDO WRIGHT COOLER OPERATOR Ot Z12.31 ENCNTR SCREEN MAMMOGRAM FOR MALIGNANT NE 10/12/2018 ESTUARDO WRIGHT COOLER OPERATOR Ot Z12.31 ENCNTR SCREEN MAMMOGRAM FOR MALIGNANT NE 10/13/2018 ESTUARDO WRIGHT COOLER OPERATOR Ot Z12.31 ENCNTR SCREEN MAMMOGRAM FOR MALIGNANT NE 11/03/2018 ESTUARDO WRIGHT COOLER OPERATOR Ot Z12.31 ENCNTR SCREEN MAMMOGRAM FOR MALIGNANT NE 11/10/2018 GÉNESIS KEY MD Ot J32.0 CHRONIC MAXILLARY SINUSITIS 11/10/2018 GÉNESIS KEY MD Ot M26.69 OTHER SPECIFIED DISORDERS OF TEMPOROMAND 11/10/2018 GÉNESIS KEY MD Ot R68.84 JAW PAIN 11/10/2018 GÉNESIS KEY MD Ot R74.8 ABNORMAL LEVELS [...] 715.31 LOC OSTEOARTH NOS-SHLDER 11/23/2018 ESTUARDO WRIGHT COOLER OPERATOR Ot Z12.31 ENCNTR SCREEN MAMMOGRAM FOR MALIGNANT NE 11/23/2018 ESTUARDO WRIGHT COOLER OPERATOR Ot Z12.31 ENCNTR SCREEN MAMMOGRAM FOR MALIGNANT NE 11/23/2018 ESTUARDO WRIGHT COOLER OPERATOR Ot Z12.31 ENCNTR SCREEN MAMMOGRAM FOR MALIGNANT [...] MD Ot K76.9 LIVER DISEASE, UNSPECIFIED 11/26/2018 GÉNESIS KEY MD Ot K76.9 LIVER DISEASE, UNSPECIFIED 12/08/2018 ANGIE NOYOLA MD Ot Z01.818 ENCOUNTER FOR OTHER PREPROCEDURAL EXAMIN 12/10/2018 ANGIE NOYOLA MD Ot C78.7 SECONDARY MALIG NEOPLASM OF LIVER AND IN 12/10/2018 ANGIE NOYOLA MD Ot 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 12/10/2018 ANGIE NOYOLA MD Ot D12.3 BENIGN NEOPLASM OF TRANSVERSE COLON 12/10/2018 ANGIE NOYOLA MD Ot E03.9 HYPOTHYROIDISM, UNSPECIFIED 12/10/2018 ANGIE NOYOLA MD Ot I10 ESSENTIAL (PRIMARY) HYPERTENSION 12/10/2018 ANGIE NOYOLA MD Ot K44.9 DIAPHRAGMATIC HERNIA WITHOUT OBSTRUCTION 12/10/2018 ANGIE NOYOLA MD Ot K57.30 DVRTCLOS OF LG INT W/O PERFORATION OR AB 12/10/2018 ANGIE NOYOLA MD Ot Z79.899 OTHER SENIOR LIVING (CURRENT) DRUG THERAPY 12/15/2018 GÉNESIS KEY MD Ot R16.0 HEPATOMEGALY, NOT ELSEWHERE CLASSIFIED 12/15/2018 GÉNESIS KEY MD Ot R59.0 LOCALIZED ENLARGED LYMPH NODES 12/16/2018 GÉNESIS KEY MD Ot J32.0 CHRONIC MAXILLARY SINUSITIS 12/16/2018 GÉNESIS KEY MD Ot M26.69 OTHER SPECIFIED DISORDERS OF TEMPOROMAND 12/16/2018 GÉNESIS KEY MD Ot R68.84 JAW PAIN 12/16/2018 GÉNESIS KEY MD Ot R74.8 ABNORMAL LEVELS OF OTHER SERUM ENZYMES 12/16/2018 GÉNESIS KEY MD Ot Z98.890 OTHER SPECIFIED POSTPROCEDURAL STATES 12/16/2018 ANGIE NOYOLA MD Ot C78.7 SECONDARY MALIG NEOPLASM OF LIVER AND IN 12/16/2018 ANGIE NOYOLA MD Ot 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 12/16/2018 ANGIE NOYOLA MD Ot D12.3 BENIGN NEOPLASM OF TRANSVERSE COLON 12/16/2018 ANGIE NOYOLA MD Ot E03.9 HYPOTHYROIDISM, UNSPECIFIED 12/16/2018 ANGIE NOYOLA MD Ot I10 ESSENTIAL (PRIMARY) HYPERTENSION 12/16/2018 ANGIE NOYOLA MD Ot K44.9 DIAPHRAGMATIC HERNIA WITHOUT OBSTRUCTION 12/16/2018 ANGIE NOYOLA MD Ot K57.30 DVRTCLOS OF LG INT W/O PERFORATION OR AB 12/16/2018 ANGIE NOYOLA MD Ot 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 12/22/2018 LISE MINER MD, Ot R16.0 HEPATOMEGALY, NOT ELSEWHERE CLASSIFIED 12/22/2018 LISE MINER MD, Ot R97.8 OTHER ABNORMAL TUMOR MARKERS 12/22/2018 GÉNESIS KEY MD, Ot J32.0 CHRONIC MAXILLARY SINUSITIS 12/22/2018 GÉNESIS KEY MD, Ot M26.69 OTHER SPECIFIED DISORDERS OF TEMPOROMAND 12/22/2018 GÉNESIS KEY MD Ot R68.84 JAW PAIN 12/22/2018 GÉNESIS KEY MD, Ot R74.8 ABNORMAL LEVELS OF OTHER SERUM ENZYMES 12/22/2018 GÉNESIS KYE MD, Ot Z98.890 OTHER SPECIFIED POSTPROCEDURAL STATES 12/22/2018 GÉNESIS KEY MD, Ot R16.0 HEPATOMEGALY, NOT ELSEWHERE CLASSIFIED 12/22/2018 GÉNESIS KEY MD, Ot R59.0 LOCALIZED ENLARGED LYMPH NODES 12/27/2018 GÉNESIS KEY MD Ot C22.7 OTHER SPECIFIED CARCINOMAS OF LIVER 12/29/2018 LISE MINER MD, Ot R16.0 HEPATOMEGALY, NOT ELSEWHERE CLASSIFIED 12/29/2018 LISE MINER MD, Ot R59.0 LOCALIZED ENLARGED LYMPH NODES Procedures There is no data. Results Test [...] plasma 399 U/L 125-220 Serum or plasma ufqxx-6-swhusvidmfc.tumor marker measurement (mass/volume) - 09:55 Serum or plasma mpute-0-uouutvirmxc.tumor marker measurement (mass/volume) 4.4 % 0.0-8.8 Serum ragweed IgE antibody assay - 11/26/18 09:55 [id number] 46.6 % 0.0-5.0 CA 19-9 - 11/26/18 09:55 CA 19-9 C 422 u[iU]/mL 0-37 Encounters ACCT No. Visit Date/Time Discharge Status Pt. Type Provider Facility Loc./Unit Complaint [id number] 01/05/2019 11:17:00 01/05/2019 23:59:59 CLS Outpatient LISE MINER MD [facility] ONC [id number] 12/28/2018 11:10:00 12/28/2018 23:59:59 CLS Outpatient LISE MINER MD [facility] RAD LIVER MASS [id number] 12/21/2018 08:36:00 12/21/2018 23:59:59 CLS Outpatient LISE MINER MD [facility] RAD LIVER MASS [id number] 12/10/2018 08:13:00 12/10/2018 23:59:59 CLS Outpatient ANGIE NOYOLA MD [facility] ENDO LIVER CANCER UNKNOWN ORIGIN [id number] 12/08/2018 05:37:00 12/08/2018 10:48:00 DIS Outpatient ANGIE NOYOLA MD [facility] PREOP COLONOSCOPY,EGD [id number] 11/26/2018 08:52:00 11/26/2018 16:37:00 DIS Outpatient GÉNESIS KEY MD [facility] RAD LIVER TUMORS ON CT SCAN [id number] 11/24/2018 08:13:00 11/24/2018 23:59:59 CLS Preadmit GÉNESIS KEY MD [facility] RAD LIVER TUMORS ON CT SCAN [id number] 11/22/2018 13:27:00 11/22/2018 23:59:59 CLS Outpatient GÉNESIS KEY MD [facility] RAD ELEVATED ALKALINE PHOSPHATASE [id number] 11/10/2018 08:25:00 11/10/2018 23:59:59 CLS Outpatient GÉNESIS KEY MD [facility] RAD ELEVATED ALK PHOS, L JAW PAIN [id number] 10/12/2018 07:46:00 10/12/2018 23:59:59 CLS Outpatient ESTUARDO WRIGHT APRN [facility] RAD SCREENING [id number] 05/11/2018 10:40:00 05/11/2018 23:59:59 CLS Preadmit GÉNESIS KEY MD [facility] RAD SCREENING MAMMOGRAM [id number] 06/23/2017 09:16:00 06/23/2017 23:59:59 CLS Outpatient ESTUARDO WRIGHT APRN [facility] RAD SCREENING [id number] 06/09/2016 09:47:00 06/09/2016 23:59:59 CLS Outpatient ESTUARDO WRIGHT APRN [facility] RAD SCREENING [id number] 06/05/2015 08:56:00 06/05/2015 23:59:59 CLS Outpatient GÉNESIS KEY MD [facility] RAD SCREENING [id number] 05/10/2015 10:48:00 05/10/2015 23:59:59 CLS Outpatient SHAHID MOSHER, GÉNESIS Mckay [facility] RAD R CLAVICLE ENLARGEMENT [id number] 09/17/2014 07:35:00 09/17/2014 09:17:00 DIS Emergency CHAPARRO MOSHER, SHERRY Beard [facility] ER FACIAL PAIN [id number] 06/01/2014 08:31:00 06/01/2014 23:59:59 CLS Outpatient SAQIB HERNANDEZ MD [facility] RAD SCREENING [id number] 02/28/2013 09:51:00 02/28/2013 23:59:59 CLS Outpatient SAQIB HERNANDEZ MD [facility] RAD SCREENING [id number] 09/17/2014 09:22:00 Document Registration [id number] 02/02/2012 09:03:00 Document Registration [id number] 12/23/2011 06:10:00 Document Registration [id number] 12/19/2011 08:04:00 Document Registration [id number] 12/16/2011 09:28:00 Document Registration [id number] 01/30/2011 08:26:00 Document Registration [id number] 11/02/2009 07:08:00 Document Registration [id number] 10/02/2009 15:03:00 Document Registration [id number] 08/06/2009 09:29:00 Document Registration
[2019-01-12] MEDS ORDERED: LACTATED RINGERS 1,000 ML IV PRN (08:50)
[2019-01-12] MEDS ORDERED: OMEP20CA12 PO (08:53)
--- NOTE | 2019-01-12 08:59 | Progress Note-Pre Operative ---
Pre-Operative Progress Note H&P Reviewed The H&P was reviewed, patient examined and no changes noted. Time Seen by Provider: 08:57 Date H&P Reviewed: Jan 12, 2019 Time H&P Reviewed: 08:58 Pre-Operative Diagnosis: Venous Insufficiency, Stage IV Colon CA LATRICE GALICIA DO Jan 12, 2019 08:59
[2019-01-12] MEDS ORDERED: 0.9% SODIUM CHLORIDE PF INJ 20 ML VIAL ONE (10:03)
[2019-01-12] MEDS ORDERED: BUP/EPI 0.5% 1:200,000 (SENSORCAINE) 30 ML VIAL ONE (10:03)
[2019-01-12] MEDS ORDERED: LIDOCAINE 1% INJ 20 ML 20 ML VIAL ONE (10:03)
[2019-01-12] MEDS ORDERED: HEParin (CENTRAL IV FLUSH) 500 UNIT/5 ML SYR ONE (10:03)
[2019-01-12] MEDS ORDERED: proPOfol 200 MG/20 ML (DIPRIVAN) VIAL IV ONE (10:12)
[2019-01-12] MEDS ORDERED: MIDAZOLAM 2 MG/2 ML (VERSED) VIAL ONE (10:12)
[2019-01-12] MEDS ORDERED: LIDOCAINE PF 2% 5 ML (XYLOCAINE) VIAL ONE (10:13)
[2019-01-12] MEDS ORDERED: ceFAZolin INJECTION 1,000 MG ONE (10:44)
[2019-01-12] MEDS ORDERED: WATER (STERILE) FOR INJECTION 10 ML ONE (10:44)
[2019-01-12] MEDS ORDERED: CATHETER FLUSH 10 ML SYR IV PRN (11:15)
[2019-01-12] MEDS ORDERED: ceFAZolin INJECTION 1,000 MG in WATER (STERILE) FOR INJECTION 10 ML IV ONE (11:15)
--- NOTE | 2019-01-12 11:19 | Progress Note-Post Operative ---
Post-Operative Progess Note Surgeon (s)/Gauger Chief Delivery (s) Surgeon LATRICE GALICIA DO Gauger Chief Delivery: NONE Pre-Operative Diagnosis Venous Insufficiency, Stage IV Colon CA Post-Operative Diagnosis SAME Procedure & Operative Findings Date of Procedure 01/12/19 Procedure Performed/Findings Debby-cath placement Anesthesia Type IV sedation by Anesthesia Estimated Blood Loss Estimated blood loss (mL): less than 5ml Specimens/Packing Specimens Removed none LATRICE GALICIA DO Jan 12, 2019 11:19
[2019-01-12] MEDS ORDERED: ACHD5005 PO (11:20)
--- NOTE | 2019-01-12 11:21 | Discharge Inst-Surgical ---
Discharge Inst-Surgical Depart Medication/Instructions New, Converted or Re-Newed RX: RX Given to Pt/Family Patient Instructions Follow up Appt: Make appointment for 1 week. [phone] Instructions: May shower in 24 hours, no tub bath or soaking. Use incentive spirometer at home as directed. No Smoking Skin/Wound Care: May remove bandages in am. You need to leave the Dermabond on incision it will fall off on it's own. Symptoms to Report: Appetite Changes, Extremity Discoloration, Numbness/Tingling, Swelling Increased , Bleeding Excessive, Eyesight Changes, Pain Increased, Urine Color Change, Constipation(Persistent), Fever over 101 degree F, Pain/Pressure in chest, Urinating Difficulty, Cough Up/Vomit Blood, Heart Beat Irreg/Pounding, Pain/ Pressure in jaw, Cramps in feet or legs, Lightheadedness, Pain/Pressure in shoulder, Diarrhea(Persistent), Memory Changes Suddenly, Questions/Concerns, Weight gain consecutive days, Dizziness/Fainting, Nausea/Vomiting, Shortness of Breath, Weight gain over 2 pounds If questions or concerns contact your physician Or seek help at emergency department. Activity Activity Instructions: Avoid Stress to Incision Driving Instructions: No Driving/Refer to Diet Discharge Diet: No Restrictions Diet After 24 Hours: Clear Liquid if Nauseous If Any Problems/Questions/Issu: Contact Your Physician, Go to Emergency Room Skin/Wound Care Infection Signs and Symptoms: Increased Redness, Foul Odor of Wound, Increased Drainage, Skin Itchy or Has a Rash, Increased Swelling, Temperature Above 101 F Bathing Instructions: Shower Stitches/Vassar/Dermabond Dis: Dermabond Ice Pack: Ice On and Off Site (as needed for pain) LATRICE GALICIA DO Jan 12, 2019 11:21
--- NOTE | 2019-01-12 12:46 | Diagnostic Imaging Report ---
INDICATION: Groshong catheter placement Fluoroscopic assistance was provided for Dr. Wyman. 9 seconds of fluoroscopy time was utilized. 2 spot films of the thorax were obtained. There is a central venous catheter in place on the right with the tip overlying the midportion of the superior vena cava. IMPRESSION: Fluoroscopic assistance was provided for Dr. Wyman. Dictated by: Dictated on workstation # [id number]
--- NOTE | 2019-01-12 15:42 | OPERATIVE REPORT ---
DATE OF SERVICE: 01/12/2019 PREOPERATIVE DIAGNOSES: 1. Venous insufficiency. 2. Metastatic colon cancer. POSTOPERATIVE DIAGNOSES: 1. Venous insufficiency. 2. Metastatic colon cancer. PROCEDURE: Insertion of Port-A-Cath. SURGEON: Nickolas Wyman DO CHEMIST PHARMACEUTICAL: None. ANESTHESIA: IV sedation by the anesthesiologist. BLOOD LOSS: Scant. FLUIDS: Per anesthesia. POSTOPERATIVE CONDITION: Stable. INDICATION FOR PROCEDURE: The patient is a 78-year-old female, who unfortunately was recently diagnosed with metastatic colon cancer, needs a port because of venous insufficiency, will need custodial IV access for chemotherapy. FINDINGS: The patient had a Port-A-Cath placed in the right anterior chest wall and right subclavian vein. PROCEDURE NOTE: After informed consent was obtained, the patient was brought to the operating room, placed on the table in supine position. She was sterilely prepped and draped in normal fashion. Then, infiltrated the skin towards the clavicle with local as well as in the right anterior chest wall with local. The patient was placed slightly Trendelenburg, advanced the 18-gauge finder needle with negative inspiration and cannulated the subclavian vein on the first attempt. Good flash of blood, removed the syringe, placed a guidewire using Seldinger technique, it went in easily, checked with fluoroscopy, it was in good position. I made a stab incision along the guidewire and I then made an incision in the right anterior chest wall with #11 blade, then carried the incision to the chest wall down through the skin and subcutaneous tissue, deepened down to subcutaneous tissue with Bovie electrocautery, down to the fascia of the pectoralis muscle. Created a pocket bluntly and then sutured 3-0 Prolene down to the pectoral fascia, then over the guidewire placed the dilator using the Seldinger technique, it went in easily. Checked with fluoroscopy, it was in good position. Removed the inner portion of the dilator as well as the guidewire and then placed the catheter down the dilator using Seldinger technique. Checked with fluoroscopy, it was in good position, had already tunneled the catheter from the stab incision into the pocket. Removed the dilator and then removed the inner portion of the catheter guidewire and then cut the catheter, attached it to the port and then placed a locking mechanism, then accessed the port with a Brown needle, got a good flash of blood and then flushed with saline and then aspirated good flash of blood and flushed with 2 mL of heparin. Placed the port into the pocket previously created, sutured in place with 3-0 Prolene and then closed the incision closing the subcutaneous tissue with 3-0 Vicryl, 2 interrupted sutures and closed the skin with 4-0 undyed Monocryl with 3 interrupted subcuticular stitches and placed Dermabond over this main incision and then Dermabond over the stab incision. The area was cleaned and dried and then Band-Aid was placed. The patient tolerated the procedure and she was actually still in the operating room while I am dictating this note, but she is in stable condition. Job ID: [id number] DocumentID: [id number] Dictated Date: 01/12/2019 11:17:31 Board Writer Date: 01/12/2019 15:41:43 Dictated By: NICKOLAS WYMAN DO
== END 2019-01-12 12:45 | disposition home or self-care (01) ==
LOC: SDC 08:03
PROVIDERS: ATTEND Surgery
DX: I87.2 Venous insufficiency (chronic) (peripheral) (principal); C18.9 Malignant neoplasm of colon, unspecified; I10 Essential (primary) hypertension; M19.91 Primary osteoarthritis, unspecified site; Z85.3 Personal history of malignant neoplasm of breast; Z87.891 Personal history of nicotine dependence; Z79.899 Other long term (current) drug therapy
CPT/HCPCS: 87081

== ENCOUNTER 2019-02-10 10:11 | Outpatient (RCR) | payer MEDICARE ==
[2019-01-20 13:02] LABS: BASOPHILS % (AUTO) 0 % (0-10); EOSINOPHILS # (AUTO) 0.5 10^3/uL (0.0-0.3); EOSINOPHILS % (AUTO) 6 % (0-10); HEMATOCRIT 36 % (35-52); LYMPHOCYTES # (AUTO) 1.6 X 10^3 (1.0-4.0); LYMPHOCYTES % (AUTO) 19 % (12-44); MEAN CORPUSCULAR HEMOGLOBIN 29 PG (25-34); MEAN CORPUSCULAR HGB CONC 33 G/DL (32-36); MEAN CORPUSCULAR VOLUME 88 FL (80-99); MEAN PLATELET VOLUME 10.7 FL (7.4-10.4); MONOCYTES # (AUTO) 0.9 X 10^3 (0.0-1.0); MONOCYTES % (AUTO) 11 % (0-12); NEUTROPHILS # (AUTO) 5.7 X 10^3 (1.8-7.8); NEUTROPHILS % (AUTO) 65 % (42-75); PLATELET COUNT 319 10^3/uL (130-400); RED CELL DISTRIBUTION WIDTH 13.8 % (10.0-14.5); WHITE BLOOD COUNT 8.7 10^3/uL (4.3-11.0)
[2019-01-20 13:26] LABS: ALANINE AMINOTRANSFERASE 33 U/L (0-55); ALBUMIN 4.1 GM/DL (3.2-4.5); ALKALINE PHOSPHATASE 421 U/L (40-136); BILIRUBIN,TOTAL 0.5 MG/DL (0.1-1.0); BUN/CREATININE RATIO 17; CALCIUM 9.6 MG/DL (8.5-10.1); CARBON DIOXIDE 23 MMOL/L (21-32); CHLORIDE 101 MMOL/L (98-107); CREATININE SERUM 0.87 MG/DL (0.60-1.30); GFR ESTIMATED > 60; GLUCOSE 162 MG/DL (70-105); POTASSIUM 3.6 MMOL/L (3.6-5.0); SODIUM 137 MMOL/L (135-145); TOTAL PROTEIN 7.5 GM/DL (6.4-8.2)
[~2019-02-10] VITALS: Ht 157.5 cm; Wt 59.0 kg
[~2019-02-10 10:11] MED LIST changes: +ACHD5005 PO; +BEVACIZUMAB IV SCH; +D5W 500 ML IV (CANCER CTR) 500 ML IV SCH; +FOSAPREPITANT DIMEGLUMINE 150 MG in NS (IVPB) CANCER CENTER ONLY 150 ML IV SCH; +NS IV 500 ML (CANCER CENTER) 500 ML ONE; +OMEP20CA12 PO; +OXALIPLATIN 200 MG in D5W 250 ML IVPB (CANCER CTR) 250 ML IV SCH; +PALONOSETRON HCL 0.25 MG, DEXAMETHASONE INJECTION 10 MG in NS (IVPB) CANCER CENTER 50 ML IV SCH; +[UNRECOGNIZED DRUG - OTHER] IV SCH; +diphenhydrAMINE 50 MG/ML INJ (CANCER CENTER) ONE; +methylPREDNISolone 125 MG/2 ML (SOLU-MEDROL) CANCER CTR ONE
[2019-02-10 10:33] LABS: BASOPHILS % (AUTO) 1 % (0-10); EOSINOPHILS # (AUTO) 0.2 10^3/uL (0.0-0.3); EOSINOPHILS % (AUTO) 3 % (0-10); HEMATOCRIT 32 % (35-52); HEMOGLOBIN 11.2 G/DL (11.5-16.0); LYMPHOCYTES # (AUTO) 1.6 X 10^3 (1.0-4.0); LYMPHOCYTES % (AUTO) 27 % (12-44); MEAN CORPUSCULAR HEMOGLOBIN 30 PG (25-34); MEAN CORPUSCULAR HGB CONC 35 G/DL (32-36); MEAN CORPUSCULAR VOLUME 85 FL (80-99); MONOCYTES # (AUTO) 0.7 X 10^3 (0.0-1.0); MONOCYTES % (AUTO) 12 % (0-12); NEUTROPHILS # (AUTO) 3.4 X 10^3 (1.8-7.8); NEUTROPHILS % (AUTO) 57 % (42-75); PLATELET COUNT 289 10^3/uL (130-400); RED CELL DISTRIBUTION WIDTH 14.5 % (10.0-14.5)
[2019-02-10 10:52] LABS: ALANINE AMINOTRANSFERASE 27 U/L (0-55); ALBUMIN 3.8 GM/DL (3.2-4.5); ALKALINE PHOSPHATASE 316 U/L (40-136); BILIRUBIN,TOTAL 0.4 MG/DL (0.1-1.0); BUN/CREATININE RATIO 13; CALCIUM 9.6 MG/DL (8.5-10.1); CARBON DIOXIDE 25 MMOL/L (21-32); CHLORIDE 102 MMOL/L (98-107); CREATININE SERUM 0.79 MG/DL (0.60-1.30); GFR ESTIMATED > 60; GLUCOSE 95 MG/DL (70-105); MAGNESIUM 1.7 MG/DL (1.8-2.4); POTASSIUM 3.3 MMOL/L (3.6-5.0); SODIUM 140 MMOL/L (135-145); TOTAL PROTEIN 6.6 GM/DL (6.4-8.2)
== END 2019-03-02 | disposition home or self-care (01) ==
LOC: ONC 10:11
PROVIDERS: ATTEND Internal Medicine Hematology & Oncology
DX: C78.7 Secondary malignant neoplasm of liver and intrahepatic bile duct (principal); C80.1 Malignant (primary) neoplasm, unspecified; R59.0 Localized enlarged lymph nodes; I10 Essential (primary) hypertension; E11.9 Type 2 diabetes mellitus without complications; E78.5 Hyperlipidemia, unspecified; E03.9 Hypothyroidism, unspecified; Z87.891 Personal history of nicotine dependence; Z79.899 Other long term (current) drug therapy
CPT/HCPCS: 36415; 36591; 80053; 83735; 85025; 96367; 96375; 96411; 96413; 96415; 99213; 99214

== ENCOUNTER 2019-03-10 09:23 | Outpatient (RCR) | payer MEDICARE ==
[~2019-03-10 09:23] MED LIST changes: -BEVACIZUMAB IV SCH; -D5W 500 ML IV (CANCER CTR) 500 ML IV SCH; -FOSAPREPITANT DIMEGLUMINE 150 MG in NS (IVPB) CANCER CENTER ONLY 150 ML IV SCH; -NS IV 500 ML (CANCER CENTER) 500 ML ONE; -OMEP20CA12 PO; +OMEP20CA13 PO; -OXALIPLATIN 200 MG in D5W 250 ML IVPB (CANCER CTR) 250 ML IV SCH; -PALONOSETRON HCL 0.25 MG, DEXAMETHASONE INJECTION 10 MG in NS (IVPB) CANCER CENTER 50 ML IV SCH; -[UNRECOGNIZED DRUG - OTHER] IV SCH; -diphenhydrAMINE 50 MG/ML INJ (CANCER CENTER) ONE; -methylPREDNISolone 125 MG/2 ML (SOLU-MEDROL) CANCER CTR ONE
[2019-03-10 09:42] LABS: BASOPHILS % (AUTO) 1 % (0-10); EOSINOPHILS # (AUTO) 0.6 10^3/uL (0.0-0.3); EOSINOPHILS % (AUTO) 9 % (0-10); HEMATOCRIT 37 % (35-52); HEMOGLOBIN 12.4 G/DL (11.5-16.0); LYMPHOCYTES # (AUTO) 1.3 X 10^3 (1.0-4.0); LYMPHOCYTES % (AUTO) 19 % (12-44); MEAN CORPUSCULAR HEMOGLOBIN 30 PG (25-34); MEAN CORPUSCULAR HGB CONC 34 G/DL (32-36); MEAN CORPUSCULAR VOLUME 89 FL (80-99); MEAN PLATELET VOLUME 10.2 FL (7.4-10.4); MONOCYTES # (AUTO) 0.5 X 10^3 (0.0-1.0); MONOCYTES % (AUTO) 8 % (0-12); NEUTROPHILS # (AUTO) 4.1 X 10^3 (1.8-7.8); NEUTROPHILS % (AUTO) 63 % (42-75); PLATELET COUNT 278 10^3/uL (130-400); RED CELL DISTRIBUTION WIDTH 14.9 % (10.0-14.5); WHITE BLOOD COUNT 6.5 10^3/uL (4.3-11.0)
[2019-03-10 10:03] LABS: ALANINE AMINOTRANSFERASE 29 U/L (0-55); ALBUMIN 4.1 GM/DL (3.2-4.5); ALKALINE PHOSPHATASE 433 U/L (40-136); BILIRUBIN,TOTAL 0.5 MG/DL (0.1-1.0); BUN/CREATININE RATIO 11; CALCIUM 9.6 MG/DL (8.5-10.1); CARBON DIOXIDE 26 MMOL/L (21-32); CHLORIDE 100 MMOL/L (98-107); CREATININE SERUM 0.83 MG/DL (0.60-1.30); GFR ESTIMATED > 60; GLUCOSE 167 MG/DL (70-105); POTASSIUM 3.8 MMOL/L (3.6-5.0); SODIUM 134 MMOL/L (135-145); TOTAL PROTEIN 7.1 GM/DL (6.4-8.2)
[2019-06-07] MEDS ORDERED: POTA10TA10 PO (00:19)
[2019-06-07] MEDS ORDERED: OXYC-529 PO (00:19)
[2019-06-07] MEDS ORDERED: ONDA4TAB11 SL (00:19)
[2019-06-07] MEDS ORDERED: FURO-125 PO (00:19)
[2019-06-08] MEDS ORDERED: ONDA8TAB13 PO (12:33)
[2019-06-08] MEDS ORDERED: METO5TAB2 PO (12:33)
[2019-06-08] MEDS ORDERED: SPIR25TA5 PO (12:33)
[2019-06-08] MEDS ORDERED: HYDR-3812 PO (12:33)
[2019-06-08] MEDS ORDERED: ONDA4TAB11 PO (12:35)
== END 2019-06-08 | disposition home or self-care (01) ==
LOC: ONC 09:23
PROVIDERS: ATTEND Internal Medicine Hematology & Oncology
DX: C78.7 Secondary malignant neoplasm of liver and intrahepatic bile duct (principal); C80.1 Malignant (primary) neoplasm, unspecified; R59.0 Localized enlarged lymph nodes; I10 Essential (primary) hypertension; E11.9 Type 2 diabetes mellitus without complications; E78.5 Hyperlipidemia, unspecified; E03.9 Hypothyroidism, unspecified; Z87.891 Personal history of nicotine dependence; Z79.899 Other long term (current) drug therapy
CPT/HCPCS: 36415; 80053; 85025; 99213

== ENCOUNTER 2019-06-06 23:22 | Emergency (ER) | payer MEDICARE ==
[~2019-06-06] VITALS: Ht 152 cm; Wt 68.0 kg
--- NOTE | 2019-06-07 00:11 | ED Lower Extremity ---
General Chief Complaint: Lower Extremity Stated Complaint: BOTH LEGS SWOLLEN,PAIN ALL OVER,LIVER CA Nursing Triage Note: PT TO ROOM 03 WITH C/O LEG SWELLING WITH PAIN STARTING LAST WEEK. PT STATES SHE HAS LIVER CANCER. PT AND FAMILY REPORT THAT THEY ARE GOING TO TALK TO PCP ABOUT HOSPICE CARE. Nursing Sepsis Screen: No Definite Risk Source: patient Exam Limitations: no limitations (RINA PHAN STUDENT) History of Present Illness Date Seen by Provider: Jun 06, 2019 Time Seen by Provider: 11:50 Initial Comments 78yr old female presents due to bilateral leg pain due to swelling. She has terminal liver cancer that has metastasized. She has a meeting Thursday for palliative care. She has associated nausea as well (RINA PHAN STUDENT) Allergies and Home Medications Allergies Coded Allergies: No Known Drug Allergies (Unverified , 12/08/18) Home Medications Atenolol 50 Mg Tablet, 50 MG PO DAILY, (Reported) Furosemide 20 Mg Tablet, 20 MG PO DAILY Prescribed by: KISHOR FERNANDEZ on 06/07/1918 Hydrocodone Bit/Acetaminophen 1 Tab Tab, 1 TAB PO Q6H PRN for PAIN-MODERATE Prescribed by: LATRICE GALICIA on 01/12/19 1120 Indapamide 1.25 Mg Tablet, 1.25 MG PO DAILY, (Reported) Levothyroxine Sodium 50 Mcg Tablet, 50 MCG PO DAILY, (Reported) Lisinopril 10 Mg Tablet, 10 MG PO DAILY, (Reported) Multivitamin 1 Each Tablet, 1 EACH PO DAILY, (Reported) Omeprazole 20 Mg Capsule.dr, 20 MG PO DAILY, (Reported) Ondansetron 4 Mg Tab.rapdis, 4 MG SL Q4H Prescribed by: KISHOR FERNANDEZ on 06/07/1918 Oxycodone HCl 5 Mg Tablet, 5 MG PO Q4H PRN for PAIN-BREAKTHROUGH Prescribed by: KISHOR FERNANDEZ on 06/07/1918 Potassium Chloride 10 Meq Tablet.er, 10 MEQ PO DAILY Take only if taking Lasix Prescribed by: KISHOR FERNANDEZ on 06/07/1918 Vit A/C/E/Zinc/Co 1 Cap Capsule, 1 CAP PO DAILY, (Reported) Patient Home Medication List Home Medication List Reviewed: Yes (KISHOR SHEFFIELD MD) Review of Systems Constitutional: malaise, weakness EENTM: no symptoms reported Respiratory: no symptoms reported Cardiovascular: no symptoms reported Gastrointestinal: RUQ, see HPI Genitourinary: no symptoms reported Musculoskeletal: no symptoms reported Skin: change in color (Jaundice) Psychiatric/Neurological: No Symptoms Reported (RINA PHAN STUDENT) Past Rwdhqqw-Kigqes-Hvuiwl Hx Past Med/Social Hx: Reviewed and Corrections made (RINA PHAN) Patient Social History Alcohol Use: Denies Use Recreational Drug Use: No Smoking Status: Former Smoker Type Used: Cigarettes Former Smoker, Quit: Dec 08, 1974 2nd Hand Smoke Exposure: No Recent Foreign Travel: No Contact w/Someone Who Travel: No Recent Infectious Disease Expo: No Recent Hopitalizations: No Physical Abuse: No Sexual Abuse: No Mistreated: No Fear: No (RINA PHAN) Seasonal Allergies Seasonal Allergies: Yes (RINA PHAN) Past Medical History Surgeries: Yes (SINUS ) Tonsillectomy Respiratory: No Cardiac: Yes High Cholesterol, Hypertension Neurological: No Reproductive Disorders: No Sexually Transmitted Disease: No HIV/AIDS: No Genitourinary: No Gastrointestinal: No Musculoskeletal: Yes Arthritis Endocrine: Yes (HAS NO THYROID) Hypothyroidsim HEENT: Yes (READING GLASSES) Loss of Vision: Bilateral Hearing Impairment: Denies Cancer: Yes Liver Did You Recieve Any Treatments: No Psychosocial: No Integumentary: No Blood Disorders: No Adverse Reaction/Blood Tranf: No (N/A) (RINA PHAN STUDENT) Physical Exam Vital Signs Vital Signs - First Documented 06/06/19 23:40 Temp 36.6 Pulse 75 Resp 17 B/P (MAP) 117/59 (78) Pulse Ox 100 O2 Delivery Room Air (KISHOR SHEFFIELD MD) Vital Signs Capillary Refill : Less Than 3 Seconds (RINA PHAN STUDENT) Height, Weight, BMI Height: 5'2.00" Weight: 125lbs. 0.0oz. [id number]; 29.00 BMI Method: General Appearance: mild distress, thin, other (jaundiced) HEENT: scleral icterus (R), scleral icterus (L) Cardiovascular: regular rate, rhythm, no edema Respiratory: lungs clear, normal breath sounds Gastrointestinal: normal bowel sounds, non tender, soft Legs: bilateral leg pain, bilateral leg soft tissue tenderness, bilateral leg swelling (Both legs pitting edema 3+ and painful to the touch) Skin: warm/dry, jaundice (RINA PHAN STUDENT) Progress/Results/Core Measures Results/Orders My Orders Orders - KISHOR SHEFFIELD MD Ed Iv/Invasive Line Start (06/06/19 23:42) Oxycodone Immediate Rel Tablet (Oxyir Ta (06/07/19 00:15) Ondansetron Oral Dissolve Tab (Zofran (06/07/19 00:15) Clindamycin 900 Mg/50 Ml Ivpb (Cleocin P (06/07/19 00:30) (KISHOR SHEFFIELD MD) Medications Given in ED Current Medications Medications Dose Ordered Sig/Devon Route Start Time Stop Time Status Last Admin Dose Admin Ondansetron HCl 4 mg Q6H PRN SL 06/07/19 00:15 06/07/19 00:16 4 MG Oxycodone HCl 5 mg ONCE ONCE PO 06/07/19 00:15 06/07/19 00:16 DC 06/07/19 00:17 5 MG (KISHOR SHEFFIELD MD) Vital Signs/I&O 06/06/19 06/07/19 23:40 00:40 Temp 36.6 Pulse 75 72 Resp 17 16 B/P (MAP) 117/59 (78) 119/70 Pulse Ox 100 100 O2 Delivery Room Air Room Air (KISHOR SHEFFIELD MD) Blood Pressure Mean: 78 Departure Impression Primary Impression: Liver cancer Qualified Codes: C22.9 - Malignant neoplasm of liver, not specified as primary or secondary Additional Impressions: Swelling of lower extremity Leg pain Qualified Codes: M79.604 - Pain in right leg; M79.605 - Pain in left leg Nausea Disposition: 01 HOME, SELF-CARE Condition: Improved Departure-Patient Inst. Decision time for Depature: 00:13 (KISHOR SHEFFIELD MD) Referrals: GÉNESIS NELSON MD (PCP/Family) Primary Care Physician Patient Instructions: Dependent Edema (DC) Add. Discharge Instructions: Starting tomorrow morning take Lasix (furosemide) as prescribed. Always take a potassium pill with your Lasix. Follow-up with Dr. Nelson Thursday as previously planned and discuss your medications. You may continue using hydrocodone as prescribed for pain. You may add oxycodone as prescribed for more severe pain. Elevate your legs toward the level of your heart is much as possible. If you are not experiencing improvement with elevation and Lasix use by Thursday, please talk with Dr. Nelson about other options were changing the dosing of your medications. Use Zofran (ondansetron) dissolved under the tongue every 4 hours as needed for nausea or vomiting. Call Dr. Nelson or return to care if symptoms are worsening despite treatment. All discharge instructions reviewed with patient and/or family. Voiced understanding. Scripts Potassium Chloride (Potassium Chloride) 10 Meq Tablet.er 10 MEQ PO DAILY, #30 TAB Take only if taking Lasix Prov: KISHOR SHEFFIELD MD 06/07/19 Ondansetron (Ondansetron Odt) 4 Mg Tab.rapdis 4 MG SL Q4H, #10 TAB 2 Refills Prov: KISHOR SHEFFIELD MD 06/07/19 Furosemide (Lasix) 20 Mg Tablet 20 MG PO DAILY, #30 TAB Prov: KISHOR SHEFFIELD MD 06/07/19 Oxycodone HCl (Oxycodone HCl) 5 Mg Tablet 5 MG PO Q4H PRN for PAIN-BREAKTHROUGH, #20 TAB Prov: KISHOR SHEFFIELD MD 06/07/19 This patient was interviewed and examined by me personally along with Martin Phan, JIMMY student. I agree with PA student history, physical, documentation, and assessments with the following additions and changes: Patient presents to the emergency room with complaints of worsening painful swelling of her lower extremities. She is also nauseated. She has hydrocodone at home but is not getting relief of her symptoms with hydrocodone. She has end-stage liver cancer and plans to meet with Dr. Nelson on Thursday to discuss hospice. She is not seeking aggressive workups but would like her symptoms managed. Exam: Gen.: Alert, oriented, no distress HEENT: Normocephalic and atraumatic, mucous membranes moist Heart: Regular rate and rhythm without murmur Lungs: Clear to auscultation bilaterally with normal effort Abdomen: Soft, nondistended Skin: Jaundiced, warm and dry Neuropsych: Alert, oriented, no focal deficits Patient was given a dose of oxycodone. She is prescribed Lasix to start in the morning. Zofran will be given for nausea. (KISHOR SHEFFIELD MD) Copy Copies To 1: GÉNESIS NELSON MD, NICK PA STUDENT Jun 07, 2019 00:11 KISHOR SHEFFIELD MD Jun 07, 2019 00:17
[2019-06-07] MEDS ORDERED: ONDANSETRON 4 MG (ZOFRAN) ORAL DISSOLVE TAB SL PRN (00:15)
[2019-06-07] MEDS ORDERED: ONDA4TAB11 SL (00:19)
[2019-06-07] MEDS ORDERED: OXYC-529 PO (00:19)
[2019-06-07] MEDS ORDERED: FURO-125 PO (00:19)
[2019-06-07] MEDS ORDERED: POTA10TA10 PO (00:19)
[2019-06-07] MEDS ORDERED: CLINDAMYCIN 900 MG/50 ML IVPB 50 ML IV ONE (00:30)
[2019-06-07 00:40] VITALS: BP 119/70
[2019-06-08] MEDS ORDERED: METO5TAB2 PO (12:33)
[2019-06-08] MEDS ORDERED: HYDR-3812 PO (12:33)
[2019-06-08] MEDS ORDERED: SPIR25TA5 PO (12:33)
[2019-06-08] MEDS ORDERED: ONDA8TAB13 PO (12:33)
[2019-06-08] MEDS ORDERED: ONDA4TAB11 PO (12:35)
== END 2019-06-07 00:40 | disposition home or self-care (01) ==
LOC: EDUNIT# 23:22 → ER 23:25
DX: C22.8 Malignant neoplasm of liver, primary, unspecified as to type (principal); C79.9 Secondary malignant neoplasm of unspecified site; M79.89 Other specified soft tissue disorders; M79.604 Pain in right leg; M79.605 Pain in left leg; R11.0 Nausea; I10 Essential (primary) hypertension; E78.00 Pure hypercholesterolemia, unspecified; E03.9 Hypothyroidism, unspecified; Z87.891 Personal history of nicotine dependence; Z90.89 Acquired absence of other organs
CPT/HCPCS: 99283

== ENCOUNTER 2019-06-08 10:38 | Inpatient (IN) | payer MEDICARE ==
[~2019-06-08] VITALS: Ht 5 cm; Wt 62.6 kg
[~2019-06-08 10:38] MED LIST changes: +FURO-125 PO; +ONDA4TAB11 SL; +OXYC-529 PO; +POTA10TA10 PO
[2019-06-08] MEDS ORDERED: NS IV 500 ML 500 ML IV SCH (11:15)
[2019-06-08] MEDS ORDERED: ONDANSETRON 4 MG/2 ML (SDV) Z0FRAN IV PRN (11:15)
[2019-06-08] MEDS ORDERED: fentaNYL PCA 1,000 MCG/NS 80 ML (TOTAL VOLUME 100 ML) INJ SCH ×2 (11:15)
[2019-06-08] MEDS ORDERED: LORazepam 0.5 MG (ATIVAN) TABLET PO PRN (11:15)
--- NOTE | 2019-06-08 11:17 | NUR ---
PALLIATIVE CARE RN was contacted by Dr. 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 She was met at the entrance with a wheel chair by two others and myself. She was noted to be pale and yellowish in color. Her lower extremities were noted to be turning purple with open blisters and new blisters popping up in front of our eyes. She was able to get to the wheelchair with assist from her daughter. Upon arrival to the room it was noted that her feet were even more purpling to her feet heading into the blackened look. She reports that they are very cold and hurt due to this. Due to the open blisters and the lack of blood flow with pain, a tenting of her feet was created to keep the blankets from touching her and to allow for warmth. Patient is admitted for CCMO and will have a Fentanyl CADD once her IV is started. Palliative Care RN will follow and offer support as needed.
[2019-06-08] MEDS ORDERED: fentaNYL INJECTION 100 MCG/2 ML AMP ONE (11:23)
[2019-06-08] MEDS ORDERED: CATHETER FLUSH 10 ML SYR IV PRN (11:30)
[2019-06-08] MEDS ORDERED: ONDA8TAB13 PO (12:33)
[2019-06-08] MEDS ORDERED: METO5TAB2 PO (12:33)
[2019-06-08] MEDS ORDERED: SPIR25TA5 PO (12:33)
[2019-06-08] MEDS ORDERED: HYDR-3812 PO (12:33)
[2019-06-08] MEDS ORDERED: ONDA4TAB11 PO (12:35)
[2019-06-08] MEDS: LORazepam INJ 2 MG/ML (ATIVAN) VIAL IV PRN ×2 (12:36→15:53)
[2019-06-08 12:49] VITALS: BP 109/72
--- NOTE | 2019-06-08 13:16 | NUR ---
PALLIATIVE CARE RN in to check on patient. Noted to have been given IV Ativan for reported agitation/anxiety. Upon entering the room noted the patient to be quiet, eyes partly open on not verbal any longer. She did not respond verbally to questions, nor did she respond to repositioning of her legs. Family at bedside with no needs verbalized. This RN will continue to monitor for needs and offer support.
--- NOTE | 2019-06-08 14:21 | NUR ---
Patient continues to decline. Family at bedside with no needs voiced. Anticipate passing within a few hours.
--- NOTE | 2019-06-08 15:12 | NUR ---
Chaplain Shanna Muro provided pastoral support through prayer with pt's family.
--- NOTE | 2019-06-08 21:14 | History & Physical ---
History of Present Illness History of Present Illness Reason for visit/HPI PT IS A 78Y/O FEMALE WHO IS KNOWN TO ME FROM CLINIC. SHE PRESENTED TO THE OFFICE WITH COMPLAINT OF SEVERE PAIN IN HER LOWER LEGS AND SWELLING IN HER LEGS. HER DAUGHTER REPORTS THAT SHE FELL AT HOME, HIT HER LEG AND HAS A WOUND ON HER LEG FROM THE FALL. [facility] REPORTS THAT SHE HAS HAD INCREASING SWELLING OF HER LOWER LEGS FOR AT LEAST A WEEK. SHE WAS DIRECTLY ADMITTED TO THE HOSPITAL FROM MY OFFICE FOR PAIN CONTROL AND COMFORT CARE MEASURES DUE TO HER METASTATIC APPENDICEAL CARCINOMA. Date of Admission Jun 08, 2019 at 10:54 Date Seen by a Provider: Jun 08, 2019 Time Seen by a Provider: 11:00 I consulted on this patient on 06/08/19 21:08 Attending Physician Génesis Nelson MD Admitting Physician Génesis Nelson MD Consult Allergies and Home Medications Allergies Coded Allergies: No Known Drug Allergies (Unverified , 12/08/18) Home Medications Atenolol 50 Mg Tablet, 50 MG PO DAILY, (Reported) Furosemide 20 Mg Tablet, 20 MG PO DAILY Prescribed by: KISHOR FERNANDEZ on 06/07/1918 Hydrocodone/Acetaminophen 1 Each Tablet, 1 TAB PO TID PRN for PAIN-MODERATE, (Reported) Indapamide 1.25 Mg Tablet, 1.25 MG PO DAILY, (Reported) Levothyroxine Sodium 50 Mcg Tablet, 50 MCG PO DAILY, (Reported) Lisinopril 10 Mg Tablet, 10 MG PO DAILY, (Reported) Metoclopramide HCl 5 Mg Tablet, 5 MG PO QID PRN for NAUSEA/VOMITING-3RD LINE, (Reported) Multivitamin 1 Each Tablet, 1 TAB PO DAILY, (Reported) Omeprazole 20 Mg Capsule.dr, 20 MG PO DAILY, (Reported) Ondansetron 4 Mg Tab.rapdis, 4 MG PO Q4H PRN for NAUSEA/VOMITING-1ST LINE, (Reported) Oxycodone HCl 5 Mg Tablet, 5 MG PO Q4H PRN for PAIN-BREAKTHROUGH Prescribed by: KISHOR FERNANDEZ on 06/07/1918 Potassium Chloride 10 Meq Tablet.er, 10 MEQ PO DAILY Take only if taking Lasix Prescribed by: KISHOR FERNANDEZ on 06/07/1918 Spironolactone 25 Mg Tablet, 25 MG PO DAILY, (Reported) Vit A/C/E/Zinc/Co 1 Cap Capsule, 1 CAP PO DAILY, (Reported) Patient Home Medication List Home Medication List Reviewed: Yes Past Dpwaucd-Dqxypm-Lygjrt Hx Past Med/Social Hx: Reviewed Nursing Past Med/Soc Hx, Reviewed and Corrections made Patient Social History Marrital Status: Living Status: LIVES IN HER HOME BY HERSELF IN [place] Employed/Student: retired Alcohol Use: Denies Use Recreational Drug Use: No Smoking Status: Former Smoker Former Smoker, Quit: Dec 08, 1974 Type Used: Cigarettes 2nd Hand Smoke Exposure: No Physical Abuse Screen: No Sexual Abuse: No Recent Foreign Travel: No Contact w/other who traveled: No Recent Hopitalizations: No Recent Infectious Disease Expo: No Seasonal Allergies Seasonal Allergies: Yes Past Medical History Surgeries: Tonsillectomy Cardiac: High Cholesterol, Hypertension Reproductive: No Sexually Transmitted Disease: No HIV/AIDS: No 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 OTHER ORGANS OF ABDOMINAL CAVITY Musculoskeletal: Arthritis Endocrine: Hypothyroidsim Loss of Vision: Bilateral Hearing Impairment: Denies Cancer: Colon (APPENDIX CANCER METASTATIC TO LIVER) Did You Recieve Any Treatments: No History of Blood Disorders: No Adverse Reaction to Blood Jones: No (N/A) Family History Reviewed Nursing Family Hx Heart Disease Review of Systems Constitutional: malaise, weakness, weight gain EENTM: No hoarseness, No throat pain Respiratory: No cough; dyspnea on exertion, short of breath Cardiovascular: No chest pain; edema; No palpitations Gastrointestinal: abdominal pain, jaundice, loss of appetite, nausea Genitourinary: frequency Musculoskeletal: muscle weakness Skin: other (SKIN TEAR AND BLISTERS ON LOWER LEGS, TOES TURNING BLACK) Psychiatric/Neurological: Denies Anxiety, Denies Depressed; Weakness All Other Systems Reviewed Negative Unless Noted: Yes Physical Exam Vital Signs Vital Signs - First Documented 06/08/19 06/08/19 11:00 12:49 Temp 36.0 Pulse 63 Resp 18 B/P (MAP) 109/72 Pulse Ox 100 O2 Delivery Room Air Capillary Refill : Height, Weight, BMI Height: 5'2.00" Weight: 125lbs. 0.0oz. [id number]; 10142.00 BMI Method: General Appearance: Moderate Distress (DUE TO PAIN AND SHORTNESS OF BREATH), Thin Eyes: Bilateral Eye Scleral Icterus Neck: Supple Respiratory: Chest Non Tender, Decreased Breath Sounds (DIFFUSELY DECREASED BREATH SOUNDS) Cardiovascular: Regular Rate, Rhythm Gastrointestinal: Soft, Abnormal Bowel Sounds, Tenderness (OVER LIVER) Rectal: Deferred Extremity: Other (EXTREME SWELLING OF RIGHT LEG AND MODERATE SWELLING OF LEFT LEG WITH SKIN TEARS AND BLISTERS ON LEFT MEDIAL LOWER LEG NEAR ANKLE, SMALL BLISTERS ON RIGHT LEG, BOTH FEET CYANOTIC) Neurologic/Psychiatric: Alert, Other (ORIENTED TO PERSON AND PLACE WHEN AT OFFICE, HOWEVER IN HOSPITAL PT IS OBTUNDED) Skin: Jaundice Assessment/Plan Assessment and Plan 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 I WOULD ANTICIPATE THAT [facility] WILL IN THE NEXT 24 - 72 HOURS. 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
[2019-06-08] MEDS ORDERED: fentaNYL INJECTION 1,000 MCG in NS (IVPB) 80 ML INJ SCH (21:30)
[2019-06-08] MEDS ORDERED: GLYCOPYRROLATE 0.2 MG/ML (ROBINUL) 2 ML VIAL IV PRN (21:30)
[2019-06-08] MEDS ORDERED: LORazepam INJ 2 MG/ML (ATIVAN) VIAL IVP SCH (22:00)
--- NOTE | 2019-06-09 04:40 | NUR ---
[facility] MUR[facility] AT 0305. RESPIRATIONS CEASED AND NO PERCEPTIBLE HEART BEAT CONFIRMED BY THIS RN AND AMADOR COTA. DR KEY NOTIFIED. FAMILY PRESENT AT TIME OF .
--- NOTE | 2019-06-09 05:16 | NUR ---
34 ML OF FENTANYL WASTED FROM DIRECTOR COMMERCIAL SALES PUMP. WITNESSED BY AMADOR TELLEZ
--- NOTE | 2019-06-09 09:24 | Discharge Summary ---
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 SHE PRESENTED TO THE OFFICE WITH COMPLAINT OF SEVERE PAIN IN HER LOWER LEGS AND SWELLING IN HER LEGS. HER DAUGHTER REPORTS THAT SHE FELL AT HOME, HIT HER LEG AND HAS A WOUND ON HER LEG FROM THE FALL. [facility] REPORTS THAT SHE HAS HAD INCREASING SWELLING OF HER LOWER LEGS FOR AT LEAST A WEEK. SHE WAS DIRECTLY ADMITTED TO THE HOSPITAL FROM MY OFFICE FOR PAIN CONTROL AND COMFORT CARE MEASURES DUE TO HER METASTATIC APPENDICEAL CARCINOMA. 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 PT AT 0445 Discharge Condition at discharge Instructions to patient/family Discharge Medications Clinical Quality Measures DVT/VTE Risk/Contraindication: RFS Level Per Nursing on Admit: 0=No Risk/No VTE PPX Contraindications-Pharm: Other *list below* Contraindications-Mechi: Other *list below* Other: PT IS ON COMFORT CARE GÉNESIS KEY MD Jun 09, 2019 09:24
== END 2019-06-09 04:45 | disposition expired | DRG 951 ==
LOC: 4TH 10:54
PROVIDERS: ADMIT Family Medicine; ATTEND Family Medicine
DX: Z51.5 Encounter for palliative care (principal); G89.3 Neoplasm related pain (acute) (chronic); C18.1 Malignant neoplasm of appendix; C78.7 Secondary malignant neoplasm of liver and intrahepatic bile duct; M79.605 Pain in left leg; M79.604 Pain in right leg; R60.0 Localized edema; Z66 Do not resuscitate; R10.9 Unspecified abdominal pain; E03.9 Hypothyroidism, unspecified; M19.91 Primary osteoarthritis, unspecified site; I10 Essential (primary) hypertension; Z87.891 Personal history of nicotine dependence; Z91.81 History of falling; Z86.718 Personal history of other venous thrombosis and embolism
CPT/HCPCS: 99283